=== PATIENT | male | born 1950 | race Caucasian/White ===

== ENCOUNTER 2021-03-07 15:11 | Outpatient (REF) | payer MEDICARE, OTHER, SELFPAY ==
--- NOTE | ~2021-03-07 | CT_ITS ---
EXAMINATION: CT CHEST SCREENING CLINICAL INFORMATION: Current smoker. 55 pack year history. COMPARISON: Previous chest x-ray July 2017 TECHNIQUE: Multidetector volumetric CT imaging of the chest is performed without contrast using low dose technique. Additional 2D coronal and sagittal reformatted images and axial 3D maximum intensity projection (MIP) images are generated on the CT workstation. This CT examination was performed using dose optimization techniques as appropriate, variously including the following: *Automated exposure control *Adjustment of mA and/or kV according to patient size (this includes techniques or standardized protocols for targeted exams where dose is matched to indication/reason for exam; i.e. extremities or head) *Use of iterative reconstruction technique DLP: 62 mGy-cm FINDINGS: LUNGS: There is mild paraseptal emphysema along apices. There is a 4 mm groundglass attenuation nodule left upper lobe nodule axial image 173 series 5. MEDIASTINUM: There is mild coronary artery calcification. There may be a small esophageal hernia. The mediastinum is otherwise normal. PLEURA: There is no pleural effusion. No pleural mass or thickening. AXILLA: No lymphadenopathy. UPPER ABDOMEN: Unremarkable OSSEOUS STRUCTURES: There are degenerative changes of the spine. CT/CT lung screening IMPRESSION: 4 mm groundglass attenuation left upper lobe nodule. Mild coronary artery calcification. ASSESSMENT: Lung-RADS category 2: Benign RECOMMENDATION: Annual low-dose chest CT follow-up recommended.
== END 2021-03-07 15:12 | disposition home or self-care (01) ==
LOC: HO.CT 15:11
PROVIDERS: PCP Internal Medicine Geriatric Medicine; Visit Provider Physician Assistant Medical
DX: F17.210 Nicotine dependence, cigarettes, uncomplicated (principal)
CPT/HCPCS: 71271; G0296

== ENCOUNTER 2021-04-10 09:26 | Outpatient (REF) | payer MEDICARE, OTHER, SELFPAY ==
[2021-04-10 10:31] LABS: MANUAL DIFF FLAG NO
[2021-04-10 11:17] LABS: Alanine Aminotransferase 14 U/L (0-40); Albumin Level 4.5 g/dL (3.5-5.0); Alkaline Phosphatase 83 U/L (39-117); Anion Gap 12 (12-20); Aspartate Amino Transferase 16 U/L (5-37); Bilirubin Total 1.1 mg/dL (0.0-1.0); Blood Urea Nitrogen 11 mg/dL (9-16); Calcium 9.7 mg/dL (8.4-10.2); Carbon Dioxide 25 mmol/L (22-29); Chloride 107 mmol/L (96-108); Estimated Glomerular Filt Rate > 60; Glucose Random 98 mg/dL (60-115); Sodium 140 mmol/L (135-145); Total Protein 7.5 g/dL (6.5-8.0)
[2021-04-10 11:31] LABS: Basophils Percent Auto 0.4 % (0-2); Eosinophils Absolute Auto 0.1 X10*3/uL (0.0-0.4); Eosinophils Percent Auto 1.1 % (0-4); Hemoglobin 19.9 g/dl (14.0-18.0); Imm Gran Abs Auto 0.02 X10*3/uL (0.00-0.03); Imm Gran Pct Auto 0.2 % (0.0-0.4); Lymphocytes Absolute Auto 2.6 X10*3/uL (1.2-4.9); Lymphocytes Percent Auto 30.8 % (20-40); Mean Corpuscular HGB Conc 35.7 g/dl (31.0-36.0); Mean Corpuscular Hemoglobin 35.5 pg (27.0-33.0); Mean Corpuscular Volume 99.6 fL (80.0-98.0); Mean Platelet Volume 10.1 fL (9.4-12.4); Monocytes Absolute Auto 0.9 X10*3/uL (0.1-1.2); Monocytes Percent Auto 10.4 % (2-11); Neutrophils Absolute Auto 4.9 x10*3/uL (2.0-8.3); Neutrophils Percent Auto 57.1 % (45-73); Platelet Count 270 X10*3/uL (160-400); Red Cell Distribution Width 14.6 % (11.0-16.0); White Blood Count 8.5 X10*3/uL (4.8-10.8)
[2021-04-10 11:32] LABS: Hematocrit 55.8 % (42.0-52.0)
== END 2021-04-10 09:27 | disposition home or self-care (01) ==
LOC: HO.LAB 09:26
PROVIDERS: PCP Internal Medicine Geriatric Medicine; Referring Provider Internal Medicine Geriatric Medicine; Visit Provider Nurse Practitioner
DX: D12.6 Benign neoplasm of colon, unspecified (principal); Z12.11 Encounter for screening for malignant neoplasm of colon
CPT/HCPCS: 36415; 80053; 85025; 99202

== ENCOUNTER → 2021-04-24 09:45 | Outpatient (BNVA) | payer MEDICARE, OTHER, SELFPAY | PROVIDERS: PCP Internal Medicine; Visit Provider Urology | DX: R97.20 Elevated prostate specific antigen [PSA] (principal) | CPT/HCPCS: Q3014 ==

== ENCOUNTER 2021-10-22 11:13 | Outpatient (REF) | payer MEDICARE, OTHER, SELFPAY ==
[2021-10-22 12:59] LABS: PSA,Total (Free>4and<10) 5.35 ng/mL (0.00-4.00)
[2021-10-24 11:32] LABS: Free Prostate Spec Ag 0.8 ng/mL; Percent Free Prostate Spec Ag 14 % (calc) (>25); Prostate Specific Ag Total 5.9 ng/mL (< OR = 4.0)
== END 2021-10-22 11:14 | disposition home or self-care (01) ==
LOC: HO.LAB 11:13
PROVIDERS: PCP Internal Medicine Geriatric Medicine; Visit Provider Urology
DX: Z12.5 Encounter for screening for malignant neoplasm of prostate (principal); R97.20 Elevated prostate specific antigen [PSA]
CPT/HCPCS: 36415; 84153; 84154

== ENCOUNTER → 2021-10-28 11:21 | Outpatient (BNVA) | payer MEDICARE, OTHER, SELFPAY | PROVIDERS: PCP Internal Medicine Geriatric Medicine; Visit Provider Urology | DX: N40.1 Benign prostatic hyperplasia with lower urinary tract symptoms (principal); N13.8 Other obstructive and reflux uropathy; R97.20 Elevated prostate specific antigen [PSA] | CPT/HCPCS: Q3014 ==

== ENCOUNTER 2022-03-02 09:48 | Outpatient (REF) | payer MEDICARE, OTHER, SELFPAY ==
[2022-03-02 12:43] LABS: PSA,Total (Free>4and<10) 6.27 ng/mL (0.00-4.00)
[2022-03-04 09:37] LABS: Free Prostate Spec Ag 1.3 ng/mL; Percent Free Prostate Spec Ag 18 % (calc) (>25); Prostate Specific Ag Total 7.4 ng/mL (< OR = 4.0)
== END 2022-03-02 09:49 | disposition home or self-care (01) ==
LOC: HO.LAB 09:48
PROVIDERS: PCP Internal Medicine Geriatric Medicine; Visit Provider Urology
DX: N40.1 Benign prostatic hyperplasia with lower urinary tract symptoms (principal); N13.8 Other obstructive and reflux uropathy; Z12.5 Encounter for screening for malignant neoplasm of prostate
CPT/HCPCS: 36415; 84153; 84154

== ENCOUNTER → 2022-03-05 11:22 | Outpatient (BNVA) | payer MEDICARE, MEDICAID, OTHER, SELFPAY | PROVIDERS: PCP Internal Medicine Geriatric Medicine; Visit Provider Urology | DX: R97.20 Elevated prostate specific antigen [PSA] (principal); N40.1 Benign prostatic hyperplasia with lower urinary tract symptoms; N13.8 Other obstructive and reflux uropathy | CPT/HCPCS: 99212 ==

== ENCOUNTER 2022-04-07 06:47 | Outpatient (REF) | payer MEDICARE, OTHER, SELFPAY ==
[2022-04-07 07:35] VITALS: BMI 25.8
[2022-04-07 07:36] VITALS: BP 140/67; PULSE 68; RESP 16; TEMP 36.8; O2SAT 97
--- NOTE | 2022-04-07 08:21 | W.PM.OPN ---
Operative Note Operative Note Date of Service: 04/07/22 Narrative: Preoperative diagnosis: Elevated PSA Postoperative diagnosis: Elevated PSA Procedure: 1. transrectal ultrasound measurement of prostate 2. transrectal ultrasound-guided pudendal nerve block 3. transrectal ultrasound-guided prostate biopsy 12 core Surgeon: Dr. Hamzah Nuno Anesthetic: Local Indications for procedure: Elevated PSA T 7.4 F 18% Procedure: After informed consent was verified, the patient was brought into the procedure area and lay left-hand side down on the table. Patient identity confirmed. Perioperative antibiotics confirmed. Safety pause time out performed. KIP performed to dilate rectal sphincter Iodine 10cc with Gel was placed per rectum Ultrasound probe was placed per rectum The prostate was measured in 3 dimensions Total volume equals 55 gm No cystic structures were noted No calcifications were noted at the surgical margin The prostate was otherwise homogeneous - MANY SMALL VASCULAR LACUNAE - in nature An ultrasound-guided pudendal nerve block was performed using 10 cc of 1% lidocaine. 8 cc was placed at the base and 2 cc of the apex. A 12 core biopsy was performed with 6 cores each side. Two cores were taken at the apex, mid and base. Cores were spaced between lateral and medial. He tolerated the procedure well. Was able to ambulate to bathroom after 5 minutes. Printed instructions regarding antibiotic use and common side effects such as low-grade temperature, potential infection and bleeding were given Pathology: 12 core prostate biopsy.
[2022-04-07 08:27] VITALS: BP 182/82; PULSE 54; RESP 16; O2SAT 97
== END 2022-04-07 06:48 | disposition home or self-care (01) ==
LOC: HO.MS 06:47
PROVIDERS: PCP Internal Medicine Geriatric Medicine; Visit Provider Urology
PROC: (CPT 55700; principal; 2022-04-07 08:00)
DX: R97.20 Elevated prostate specific antigen [PSA] (principal); N40.1 Benign prostatic hyperplasia with lower urinary tract symptoms; N13.8 Other obstructive and reflux uropathy; I10 Essential (primary) hypertension; E78.5 Hyperlipidemia, unspecified; R73.01 Impaired fasting glucose; G62.9 Polyneuropathy, unspecified; H90.3 Sensorineural hearing loss, bilateral; Z87.891 Personal history of nicotine dependence
CPT/HCPCS: 55700; 76942; 88305; 88344

== ENCOUNTER 2022-04-14 06:29 | Day surgery (SDC) | payer MEDICARE, OTHER, SELFPAY ==
[2022-04-09 15:32] VITALS: BMI 25.8
--- NOTE | 2022-04-13 13:32 | P.CONAN_ITS ---
Documented by User: Diya Jara NP 04/13/22 13:33 HPI - Anesthesia Eval Consult details Narrative: 72yo M for Colonoscopy PMF Active Problems Active Problems: All Active Problems (Updated 10/28/21 @ 15:36 by Hamzah Nuno MD) Colon cancer screening (Acute) Lumbar degenerative disc disease (Acute) Failed back surgical syndrome (Acute) Peripheral arterial disease (Acute) Tubular adenoma of colon (Acute) BPH w urinary obs/LUTS (Acute) Elevated PSA (Acute) Personal history of nicotine dependence (Acute) Past Medical History Medical History Elevated PSA History of melanoma Hyperlipidemia Hypertension, essential, benign Impaired fasting glucose Peripheral polyneuropathy Personal history of nicotine dependence Sensorineural hearing loss (SNHL), bilateral Serrated adenoma of colon (~2002) Surgical History Surgical History History of back surgery History of cataract surgery History of colonoscopy History of melanoma excision History of umbilical hernia repair Hx of prostate biopsy Social History Social History Alcohol intake: current Alcohol intake frequency: a few times a week Patient Tobacco Use Status: Current everyday Tobacco user Tobacco use type: Cigarette Cigarette Packs Per Day: 1 Cigarettes Per Day: 20 Years Smoked: 50 Are you DNR?: No Advance Directives: No Advance Directives Information Provided: Yes Advance Directives on File: No Recently lost weight without trying: No Eating poorly because of decreased appetite: No Nutrition Risks: No Nutritional Risk Meds Allergies Allergy/AdvReac Type Severity Reaction Status Date / Time No Known Allergies Allergy Verified 04/14/22 06:56 [No Known Allergies*] Home Medications Medication Instructions Recorded Confirmed Last Taken Type amlodipine 10 mg tablet 10 mg PO DAILY 04/10/21 04/09/22 Unknown History aspirin 81 mg tablet,delayed 81 mg PO DAILY 04/10/21 04/09/22 04/11/22 History release cilostazol 100 mg tablet 100 mg PO BID 04/10/21 04/09/22 Unknown History cyclobenzaprine 5 mg tablet 5 mg PO BID 04/10/21 04/09/22 Unknown History losartan 25 mg tablet 25 mg PO DAILY 04/10/21 04/09/22 Unknown History meloxicam 7.5 mg tablet 7.5 mg PO DAILY 04/10/21 04/09/22 04/11/22 History omeprazole 20 mg capsule,delayed 20 mg PO DAILY 04/10/21 04/09/22 Unknown History release oxycodone-acetaminophen 5 mg-325 1 tab PO TID PRN Pain 04/10/21 04/09/22 Unknown History mg tablet atorvastatin 80 mg tablet 80 mg PO DAILY 10/27/21 04/09/22 Unknown History gabapentin 100 mg capsule 100 mg PO DAILY 10/27/21 04/09/22 Unknown History Exam Exam Date and Time: April 13, 2022 1332 Height,Weight and Vital Signs: Height 5 ft 9 in Weight 79.379 kg Pertinent Lab Results Pertinent Lab Results: Laboratory Tests 04/10/21 04/10/21 10:30 10:30 WBC 8.5 Hgb 19.9 H Hct 55.8 H Plt Count 270 Sodium 140 Potassium 4.0 Chloride 107 Carbon Dioxide 25 BUN 11 Creatinine 0.82 Assessment and Plan Assessment Anesthesia Assessment: Chart Reviewed Documented by User: Katey Hodges MD 04/14/22 07:26 PMFSH Past Medical History Medical History Elevated PSA History of melanoma Hyperlipidemia Hypertension, essential, benign Impaired fasting glucose Peripheral polyneuropathy Personal history of nicotine dependence Sensorineural hearing loss (SNHL), bilateral Serrated adenoma of colon (~2002) Surgical History Surgical History History of back surgery History of cataract surgery History of colonoscopy History of melanoma excision History of umbilical hernia repair Hx of prostate biopsy Social History Social History Alcohol intake: current Alcohol intake frequency: a few times a week Patient Tobacco Use Status: Current everyday Tobacco user Tobacco use type: Cigarette Cigarette Packs Per Day: 1 Cigarettes Per Day: 20 Years Smoked: 50 Are you DNR?: No Advance Directives: No Advance Directives Information Provided: Yes Advance Directives on File: No Recently lost weight without trying: No Eating poorly because of decreased appetite: No Nutrition Risks: No Nutritional Risk Meds Allergies Allergy/AdvReac Type Severity Reaction Status Date / Time No Known Allergies Allergy Verified 04/14/22 06:56 [No Known Allergies*] Home Medications Medication Instructions Recorded Confirmed Last Taken Type amlodipine 10 mg tablet 10 mg PO DAILY 04/10/21 04/09/22 Unknown History aspirin 81 mg tablet,delayed 81 mg PO DAILY 04/10/21 04/09/22 04/11/22 History release cilostazol 100 mg tablet 100 mg PO BID 04/10/21 04/09/22 Unknown History cyclobenzaprine 5 mg tablet 5 mg PO BID 04/10/21 04/09/22 Unknown History losartan 25 mg tablet 25 mg PO DAILY 04/10/21 04/09/22 Unknown History meloxicam 7.5 mg tablet 7.5 mg PO DAILY 04/10/21 04/09/22 04/11/22 History omeprazole 20 mg capsule,delayed 20 mg PO DAILY 04/10/21 04/09/22 Unknown History release oxycodone-acetaminophen 5 mg-325 1 tab PO TID PRN Pain 04/10/21 04/09/22 Unknown History mg tablet atorvastatin 80 mg tablet 80 mg PO DAILY 10/27/21 04/09/22 Unknown History gabapentin 100 mg capsule 100 mg PO DAILY 10/27/21 04/09/22 Unknown History Exam Airway Mallampati Class: II TM Dist: >3cm Neck ROM: Full Heart: rrr Lungs: cta Assessment and Plan Final Anesthetic Review Final Preanesthetic Review: No Changes in Pt Med Stat, Meds/Allgs Chart Reviewe d, Consent Obtained/Reviewed and Anes Risks/Benef Reviewed Patient Risk: Low Procedure Risk: Low Anesthetic Plan Anesthetic Plan: MAC: and Agree w/ Assess. and Plan Disposition: Standard PACU
[2022-04-14] VITALS (10 sets, daily range): BP systolic 91–157; BP diastolic 64–80; PULSE 74–87; RESP 16–20; TEMP 36.2–36.8; O2SAT 95–98
--- NOTE | 2022-04-14 06:52 | MHC.SHP ---
Pre-Procedural Eval Section A Date of Service: 04/14/22 Section B Chief Complaint: screening Relevant Family History (Specify if Yes): No Relevant Social History: Tobacco Use Present Medications: see Short Stay Collaborative assessment Medical History: Significant History (Elevated PSA History of melanoma Hyperlipidemia Hypertension, essential, benign Impaired fasting glucose Peripheral polyneuropathy Personal history of nicotine dependence Sensorineural hearing loss (SNHL), bilateral Serrated adenoma of colon (~2002)) History of Previous Operations: Relevant previous surgery/procedure and date(s) (History of back surgery History of cataract surgery History of colonoscopy History of melanoma excision History of umbilical hernia repair Hx of prostate biopsy) Allergies: Allergies Allergy/AdvReac Type Severity Reaction Status Date / Time No Known Allergies Allergy Verified 03/05/22 11:35 [No Known Allergies*] Review of Systems Sugical H&P ROS: Negative: Constitution, Cardiovascular, Respiratory, Neurological, Psychiatric, Hem-Onc, Allergic/Immunologic, Gastrointestinal, Genitourinary, Musculoskeletal, Integumentary, Endocrine and Eyes/Ears/Nose/Throat Exam Surgical H&P Exam: Normal: HEENT, Normal: Heart, Normal: Lungs, Normal: Extremities, Normal: Abdomen, Normal: Skin and Normal: Neurological Plan Diagnosis/Plan: Unchanged I have reviewed the history and physical and performed a pertinent physical examination on my patient. No changes have occurred unless specified. Time Spent With Patient Time: Total time managing care of this patient today ____ minutes.
[2022-04-14] MEDS: Lactated Ringers 1,000 ML 100 ML IVCONT (06:55)
--- NOTE | 2022-04-14 07:48 | P.OP_ITS ---
Operative Note Operative Note Date of Service: 04/14/22 Narrative: Operative Information Procedure Description: Colonoscopy Indication: screening Anesthesia: MAC COLONOSCOPY Instrument: Olympus variable stiffness pediatric scope 190L Colonoscopy Monitoring: Vital signs and clinical assessment, continuous EKG monitoring, Pulse oximetry, Carbon Dioxide monitoring and blood pressure monitoring were done throughout the procedure. Colon withdrawal time was 51 minutes. Procedure: The patient was placed in the left lateral decubitis position and pre-procedure medications were administered. After a digital rectal examination of the ano-rectum, the video colonoscope was inserted into the rectum and advanced through the colon to the cecum/TI. The colonoscope was slowly withdrawn in a retrograde panoramic fashion and the colon mucosa was carefully examined including a retroflexed view of the rectum. Findings and interventions are described below. Procedure Difficulty: moderate Findings: Terminal Ileum-normal Cecum: 5-7 mm sessile polyp removed with cold forceps Ascending Colon: in proximal ascending there was a large flat polyp, lateral spreading granular type measuring about 2 cm with raised edges on one side, This was lifted with ERBE jet and methylene blue and then removed piece meal using cold snare and hot snare with edges ablated using APC. The defect was partially closed using 4 clips. In the distal part there was a 12-15 mm flat polyp which was lifted with ERBE jet and then removed piece meal using hot snare. Edges ablated with APC. There were a few smaller polyps 6-8 mm which were not removed due to time length of the procedure and persistent spasm of the colon. Transverse Colon -normal Descending Colon:normal Sigmoid Colon: moderate severe diverticulosis Rectum: Retroflexion with large internal hemorrhoids, grade I Anorectum - normal Colon preparation: [place] Bowel Preparation Scale Right colon; 2 Transverse colon: 3 Left colon; 3 (0 = Unprepared colon segment with mucosa not seen due to solid stool that cannot be cleared. 1 = Portion of mucosa of the colon segment seen, but other areas of the colon segment not well seen due to staining, residual stool and/or opaque liquid. 2 = Minor amount of residual staining, small fragments of stool and/or opaque liquid, but mucosa of colon segment seen well. 3 = Entire mucosa of colon segment seen well with no residual staining, small fragments of stool or opaque liquid) Impression and Post Procedure Diagnosis: polyps internal hemorrhoids diverticular disease Plan: High fiber diet leaflet Avoid straining at stool, epsom salts and sitz bath, anusol supps or cream Repeat Colonoscopy in 3-6 months or earlier if clinically indicated 1 week of cipro and flagyl to prevent post polypectomy syndrome avoid nsaids like ibuprofen, hold aspirin for 3 days or so Above findings were reviewed with the patient and relevant handouts were provided if indicated.
[2022-04-14] MEDS: levoFLOXacin/D5W 500 MG/100 ML PIGGYBACK 100 MG IV (09:16)
[2022-04-14] MEDS: metroNIDAZOLE/NS 500 MG/100 ML PIGGYBACK 100 MG IV (10:14)
== END 2022-04-14 11:29 | disposition home or self-care (01) ==
PROVIDERS: PCP Internal Medicine Geriatric Medicine; Visit Provider Internal Medicine Gastroenterology
PROC: 0DJD8ZZ Inspection of Lower Intestinal Tract, Via Natural or Artificial Opening Endoscopic (ICD-10-PCS; CPT 45378; principal; 2022-04-14 07:30)
DX: Z12.11 Encounter for screening for malignant neoplasm of colon (principal); Z86.010 Personal history of colon polyps; D12.0 Benign neoplasm of cecum; D12.2 Benign neoplasm of ascending colon; K57.30 Diverticulosis of large intestine without perforation or abscess without bleeding; K64.0 First degree hemorrhoids; E78.00 Pure hypercholesterolemia, unspecified; I10 Essential (primary) hypertension; R73.01 Impaired fasting glucose; G62.9 Polyneuropathy, unspecified; R97.20 Elevated prostate specific antigen [PSA]; Z79.82 Long term (current) use of aspirin; Z79.899 Other long term (current) drug therapy; F17.210 Nicotine dependence, cigarettes, uncomplicated; Z85.820 Personal history of malignant melanoma of skin
CPT/HCPCS: 45388; 45385; 45380; 45381; 88305; C2618; J1100; J1956; Q9968

== ENCOUNTER → 2022-04-15 10:53 | Outpatient (BNVA) | payer MEDICARE, MEDICAID, SELFPAY | PROVIDERS: PCP Internal Medicine Geriatric Medicine; Visit Provider Urology | DX: R97.20 Elevated prostate specific antigen [PSA] (principal); N40.1 Benign prostatic hyperplasia with lower urinary tract symptoms; N13.8 Other obstructive and reflux uropathy | CPT/HCPCS: Q3014 ==

== ENCOUNTER → 2022-04-29 10:26 | Outpatient (BNVA) | payer MEDICARE, MEDICAID, SELFPAY | PROVIDERS: PCP Internal Medicine Geriatric Medicine; Visit Provider Nurse Practitioner | DX: D12.6 Benign neoplasm of colon, unspecified (principal) | CPT/HCPCS: 99212 ==

== ENCOUNTER 2022-07-28 08:48 | Day surgery (SDC) | payer MEDICARE, OTHER, SELFPAY ==
[2022-07-23 10:44] VITALS: BMI 26.1
--- NOTE | 2022-07-27 12:11 | HO.ANESPROP2 ---
Documented by User: Diya Jara NP 07/27/22 12:13 HPI - Anesthesia Eval Consult details Narrative: 72yo M for Colonoscopy s/p colo 04/2022 with MAC PMFSH Active Problems Active Problems: All Active Problems (Updated 04/29/22 @ 11:36 by NORMAN Gordon) Colon cancer screening (Acute) Lumbar degenerative disc disease (Acute) Failed back surgical syndrome (Acute) Peripheral arterial disease (Acute) Tubular adenoma of colon (Acute) BPH w urinary obs/LUTS (Acute) Elevated PSA (Acute) Personal history of nicotine dependence (Acute) Past Medical History Medical History Elevated PSA History of melanoma Hyperlipidemia Hypertension, essential, benign Impaired fasting glucose Peripheral polyneuropathy Personal history of nicotine dependence Sensorineural hearing loss (SNHL), bilateral Serrated adenoma of colon (~2002) Surgical History Surgical History History of back surgery History of cataract surgery History of colonoscopy History of melanoma excision History of umbilical hernia repair Hx of prostate biopsy Social History Social History Alcohol intake: current Alcohol intake frequency: a few times a week Patient Tobacco Use Status: Current everyday Tobacco user Tobacco use type: Cigarette Cigarette Packs Per Day: 1 Cigarettes Per Day: 20 Years Smoked: 50 Meds Allergies Allergy/AdvReac Type Severity Reaction Status Date / Time No Known Allergies Allergy Verified 07/28/22 09:13 [No Known Allergies*] Home Medications Medication Instructions Recorded Confirmed Last Taken Type amlodipine 10 mg tablet 10 mg PO DAILY 04/10/21 07/23/22 Unknown History aspirin 81 mg tablet,delayed 81 mg PO DAILY 04/10/21 07/23/22 07/24/22 History release cilostazol 100 mg tablet 100 mg PO BID 04/10/21 07/23/22 Unknown History cyclobenzaprine 5 mg tablet 5 mg PO BID 04/10/21 07/23/22 Unknown History losartan 25 mg tablet 25 mg PO DAILY 04/10/21 07/23/22 Unknown History meloxicam 7.5 mg tablet 7.5 mg PO DAILY 04/10/21 07/23/22 07/24/22 History oxycodone-acetaminophen 5 mg-325 1 tab PO TID PRN Pain 04/10/21 07/23/22 Unknown History mg tablet atorvastatin 80 mg tablet 80 mg PO DAILY 10/27/21 07/23/22 Unknown History gabapentin 100 mg capsule 100 mg PO DAILY 10/27/21 07/23/22 07/28/22 History pantoprazole 20 mg tablet,delayed 20 mg PO DAILY 07/28/22 07/28/22 Unknown History release Exam Exam Date and Time: July 27, 2022 1211 Height,Weight and Vital Signs: Height 6 ft 1 in Weight 89.811 kg Assessment and Plan Assessment Anesthesia Assessment: Chart Reviewed Documented by User: Manav Rapp MD 07/28/22 17:49 HPI - Anesthesia Eval Consult details Narrative: 72yo M for Colonoscopy s/p colo 04/2022 with MAC back pain with radtion to bl LE with tingling and numbness PMFSH Past Medical History Medical History Elevated PSA History of melanoma Hyperlipidemia Hypertension, essential, benign Impaired fasting glucose Peripheral polyneuropathy Personal history of nicotine dependence Sensorineural hearing loss (SNHL), bilateral Serrated adenoma of colon (~2002) Functional capacity: independent ambulation Family History Family history of problems with anesthesia: No Surgical History Surgical History History of back surgery History of cataract surgery History of colonoscopy History of melanoma excision History of umbilical hernia repair Hx of prostate biopsy History of Problems with Anesthesia: No Social History Social History Alcohol intake: current Alcohol intake frequency: a few times a week Patient Tobacco Use Status: Current everyday Tobacco user Tobacco use type: Cigarette Cigarette Packs Per Day: 1 Cigarettes Per Day: 20 Years Smoked: 50 Meds Allergies Allergy/AdvReac Type Severity Reaction Status Date / Time No Known Allergies Allergy Verified 07/28/22 09:13 [No Known Allergies*] Home Medications Medication Instructions Recorded Confirmed Last Taken Type amlodipine 10 mg tablet 10 mg PO DAILY 04/10/21 07/23/22 Unknown History aspirin 81 mg tablet,delayed 81 mg PO DAILY 04/10/21 07/23/22 07/24/22 History release cilostazol 100 mg tablet 100 mg PO BID 04/10/21 07/23/22 Unknown History cyclobenzaprine 5 mg tablet 5 mg PO BID 04/10/21 07/23/22 Unknown History losartan 25 mg tablet 25 mg PO DAILY 04/10/21 07/23/22 Unknown History meloxicam 7.5 mg tablet 7.5 mg PO DAILY 04/10/21 07/23/22 07/24/22 History oxycodone-acetaminophen 5 mg-325 1 tab PO TID PRN Pain 04/10/21 07/23/22 Unknown History mg tablet atorvastatin 80 mg tablet 80 mg PO DAILY 10/27/21 07/23/22 Unknown History gabapentin 100 mg capsule 100 mg PO DAILY 10/27/21 07/23/22 07/28/22 History pantoprazole 20 mg tablet,delayed 20 mg PO DAILY 07/28/22 07/28/22 Unknown History release Exam Airway Mallampati Class: III TM Dist: >3cm Loose/Missing/Broken Teeth: Yes Assessment and Plan Assessment Anesthesia Assessment: Anesthesia Plan Discussed Final Anesthetic Review Family History of Problems with Anesthesia: No History of Problems with Anesthesia: No NPO: Yes ASA Class: III Final Preanesthetic Review: Meds/Allgs Chart Reviewed, Consent Obtained/Reviewed and Anes Risks/Benef Reviewed Patient Risk: Intermediate Procedure Risk: Intermediate Anesthetic Plan Anesthetic Plan: MAC: and Agree w/ Assess. and Plan Disposition: Standard PACU
[2022-07-28 09:26] VITALS: BP 135/65; PULSE 86; RESP 16; TEMP 36.4; O2SAT 96
[2022-07-28] MEDS: Lactated Ringers 1,000 ML 100 ML IVCONT (09:46)
--- NOTE | 2022-07-28 10:51 | MHC.SHP ---
Pre-Procedural Eval Section A Date of Service: 07/28/22 Section B Chief Complaint: Screening Details of Present Illness: hx of polyps Relevant Family History (Specify if Yes): No Relevant Social History: Tobacco Use Present Medications: see Short Stay Collaborative assessment Medical History: Significant History (Elevated PSA History of melanoma Hyperlipidemia Hypertension, essential, benign Impaired fasting glucose Peripheral polyneuropathy Personal history of nicotine dependence Sensorineural hearing loss (SNHL), bilateral Serrated adenoma of colon (~2002)) History of Previous Operations: Relevant previous surgery/procedure and date(s) (History of back surgery History of cataract surgery History of colonoscopy History of melanoma excision History of umbilical hernia repair Hx of prostate biopsy) Allergies: Allergies Allergy/AdvReac Type Severity Reaction Status Date / Time No Known Allergies Allergy Verified 07/28/22 09:13 [No Known Allergies*] Review of Systems Sugical H&P ROS: Negative: Constitution, Cardiovascular, Respiratory, Neurological, Psychiatric, Hem-Onc, Allergic/Immunologic, Gastrointestinal, Genitourinary, Musculoskeletal, Integumentary, Endocrine and Eyes/Ears/Nose/Throat Exam Surgical H&P Exam: Normal: HEENT, Normal: Heart, Normal: Lungs, Normal: Extremities, Normal: Abdomen, Normal: Skin and Normal: Neurological Plan Diagnosis/Plan: Unchanged I have reviewed the history and physical and performed a pertinent physical examination on my patient. No changes have occurred unless specified. Time Spent With Patient Time: Total time managing care of this patient today ____ minutes.
--- NOTE | 2022-07-28 10:55 | W.PM.OPN ---
Operative Note Operative Note Date of Service: 07/28/22 Narrative: Operative Information Procedure Description: Colonoscopy Indication: hx of polyps Anesthesia: MAC COLONOSCOPY Instrument: Olympus variable stiffness pediatric scope 190L Colonoscopy Monitoring: Vital signs and clinical assessment, continuous EKG monitoring, Pulse oximetry, Carbon Dioxide monitoring and blood pressure monitoring were done throughout the procedure. Colon withdrawal time was 9 minutes. Procedure: The patient was placed in the left lateral decubitis position and pre-procedure medications were administered. After a digital rectal examination of the ano-rectum, the video colonoscope was inserted into the rectum and advanced through the colon to the cecum/TI. The colonoscope was slowly withdrawn in a retrograde panoramic fashion and the colon mucosa was carefully examined including a retroflexed view of the rectum. Findings and interventions are described below. Procedure Difficulty: moderate Findings: Terminal Ileum-normal Cecum:normal Ascending Colon: some granularity in fold around prior resection site, biopsy excised, 9-10 mm sessile polyp removed with cold snare Transverse Colon -normal Descending Colon:normal Sigmoid Colon: moderate severe diverticulosis Rectum: Retroflexion with small internal hemorrhoids, grade I Anorectum - normal Colon preparation: [place] Bowel Preparation Scale Right colon; 2 Transverse colon: 1-2 Left colon; 1-2 (0 = Unprepared colon segment with mucosa not seen due to solid stool that cannot be cleared. 1 = Portion of mucosa of the colon segment seen, but other areas of the colon segment not well seen due to staining, residual stool and/or opaque liquid. 2 = Minor amount of residual staining, small fragments of stool and/or opaque liquid, but mucosa of colon segment seen well. 3 = Entire mucosa of colon segment seen well with no residual staining, small fragments of stool or opaque liquid) Impression and Post Procedure Diagnosis: polyps internal hemorrhoids diverticular disease Plan: High fiber diet leaflet Avoid straining at stool, epsom salts and sitz bath, anusol supps or cream Repeat Colonoscopy in 1 year or earlier if clinically indicated Above findings were reviewed with the patient and relevant handouts were provided if indicated.
[2022-07-28 11:37] VITALS: BP 113/68; PULSE 76; RESP 15; TEMP 36.7; O2SAT 98
[2022-07-28 11:52] VITALS: BP 129/72; PULSE 64; RESP 16; TEMP 36.7; O2SAT 96
== END 2022-07-28 12:08 | disposition home or self-care (01) ==
PROVIDERS: PCP Internal Medicine Geriatric Medicine; Visit Provider Internal Medicine Gastroenterology
PROC: 0DJD8ZZ Inspection of Lower Intestinal Tract, Via Natural or Artificial Opening Endoscopic (ICD-10-PCS; CPT 45378; principal; 2022-07-28 10:40)
DX: Z12.11 Encounter for screening for malignant neoplasm of colon (principal); Z86.010 Personal history of colon polyps; D12.2 Benign neoplasm of ascending colon; K57.30 Diverticulosis of large intestine without perforation or abscess without bleeding; K64.0 First degree hemorrhoids; R97.20 Elevated prostate specific antigen [PSA]; I10 Essential (primary) hypertension; E78.5 Hyperlipidemia, unspecified; R73.01 Impaired fasting glucose; I73.9 Peripheral vascular disease, unspecified; M51.36 Other intervertebral disc degeneration, lumbar region; M96.1 Postlaminectomy syndrome, not elsewhere classified; H90.3 Sensorineural hearing loss, bilateral; Z85.820 Personal history of malignant melanoma of skin; F17.210 Nicotine dependence, cigarettes, uncomplicated; Z79.82 Long term (current) use of aspirin; Z79.899 Other long term (current) drug therapy
CPT/HCPCS: 45385; 88305

== ENCOUNTER → 2022-08-26 13:36 | Outpatient (BNVA) | payer MEDICARE, MEDICAID, SELFPAY | PROVIDERS: PCP Internal Medicine Geriatric Medicine; Visit Provider Nurse Practitioner | DX: D12.2 Benign neoplasm of ascending colon (principal); Z98.890 Other specified postprocedural states | CPT/HCPCS: 99212 ==

== ENCOUNTER 2022-10-08 10:47 | Outpatient (REF) | payer MEDICARE, MEDICAID, SELFPAY | END 2022-10-08 10:48 | disposition home or self-care (01) | LOC: HO.LAB 10:47 | PROVIDERS: PCP Internal Medicine Geriatric Medicine; Visit Provider Urology | DX: Z12.5 Encounter for screening for malignant neoplasm of prostate (principal); R97.20 Elevated prostate specific antigen [PSA] | CPT/HCPCS: 36415; 84153 ==

== ENCOUNTER 2022-10-13 14:22 | Outpatient (AMB) | payer MEDICARE, MEDICAID, SELFPAY ==
--- NOTE | 2022-10-13 14:26 | MHC.OFFVIS ---
Intake Intake Visit Reasons: 6M PSA(set) Intake Note: Patient is present for Follow Up psa/PVR Urology Med: Finasteride Antibiotic Allergy: None Blood Thinner: Aspirin PVR: 0ML Allergies No Known Allergies [No Known Allergies*] Allergy (Verified 10/13/22 14:35) Medication List - Last Reconciled 10/13/22 by Hamzah Nuno MD amlodipine 10 mg PO DAILY aspirin 81 mg PO DAILY atorvastatin 80 mg PO DAILY bisacodyl (Dulcolax (bisacodyl)) 10 mg (2 x 5 mg) PO BEDTIME 2 days cilostazol 100 mg PO BID cyclobenzaprine 5 mg PO BID finasteride 5 mg PO DAILY 90 days gabapentin 100 mg PO DAILY losartan 25 mg PO DAILY meloxicam 7.5 mg PO DAILY oxycodone-acetaminophen 5-325 mg 1 tab PO TID PRN pantoprazole 20 mg PO DAILY polyethylene glycol 3350 (Miralax) 238 grams PO ONCE 1 day HPI HPI Comments History of Present Illness Details Kaiser is a pleasant male. He is a patient of Dr. Cruz. He is seen for the following urologic conditions - elevated PSA - lower urinary tract symptoms PSA fallen remarkably on finasteride Improved urinary symptoms 6 month follow-up Elevated PSA He presents for - continued evaluation elevated PSA Current management is - finasteride Laboratory investigations include - a total PSA evaluation - 01/23 4.4, 10/24 5.4, 02/24 7.4 18%. 10/25 2.0 on finasteride Imaging investigations include - a prostate MRI no Individualized Prostate Cancer Risk Calculator - less than 5% A TRUS biopsy - 04/27 - 55gm prostate 04/16 core suspicious but not diagnostic Symptoms include - minimal symptoms - are stable Overall symptoms are mild . Therapeutic plan will be - continue follow PSA every 6 months [facility] Medical History Elevated PSA History of melanoma Hyperlipidemia Hypertension, essential, benign Impaired fasting glucose Peripheral polyneuropathy Personal history of nicotine dependence Sensorineural hearing loss (SNHL), bilateral Serrated adenoma of colon (~2002) Surgical History History of back surgery History of cataract surgery History of colonoscopy History of melanoma excision History of umbilical hernia repair Hx of prostate biopsy Social History Alcohol intake: current Alcohol intake frequency: a few times a week Patient Tobacco Use Status: Current everyday Tobacco user Tobacco use type: Cigarette Cigarette Packs Per Day: 1 Cigarettes Per Day: 20 Years Smoked: 50 Review of Systems Const Denies chills and Denies fever(s) Card Reports no additional complaints and Denies syncope Resp Denies cough GI Denies abdominal pain and Denies heartburn Reports as per HPI and Denies change in libido Neuro Denies syncope Psych Denies change in libido Endo Denies change in libido Physical Exam Const General: cooperative, healthy appearing, comfortable and no acute distress Orientation/consciousness: patient oriented x3 HEENT Face and sinus: Yes normal facial exam Mouth: moist mucous membranes Neck Neck: Yes normal visual inspection, Yes full ROM and Yes trachea midline Chest Chest palpation & inspection: normal inspection of the chest Resp Effort & Inspection: normal respiratory effort, able to speak in complete sentences and no respiratory distress GI Inspection: Yes normal to inspection Back/Spine/Pelvis Cervical Spine: normal cervical lordosis Thoracic/Lumbar Spine: thoracic and lumbar spine normal to inspection Skin General skin exam: no rashes or lesions noted Neuro General: patient oriented x3, gait normal, tone normal and moves all extremities Extrem General: Yes normal to inspection and Yes capillary refill normal Office Procedures Post Void Residual Post Residual Void Post Void Residual (PVR): 0 [id number] Void Residual by ultrasound Results AMB Urinalysis, Automated UA Leukoctes 15 Viraj/uL Last Edit by JUAN Estrada on 10/13/22 14:37 UA Nitrite Negative Last Edit by JUAN Estrada on 10/13/22 14:37 UA Urobilinogen 0.2 mg/dL Last Edit by JUAN Estrada on 10/13/22 14:37 UA Protein 30 mg/dL Last Edit by JUAN Estrada on 10/13/22 14:37 UA pH 6.0 Last Edit by JUAN Estrada on 10/13/22 14:37 UA Blood 0 Mervin/uL Last Edit by JUAN Estrada on 10/13/22 14:37 UA Specific Dewey 1.025 Last Edit by JUAN Estrada on 10/13/22 14:37 UA Ketone Positive Last Edit by Ondina Quintanilla, RMA on 10/13/22 14:37 UA Bilirubin 1 mg/dL Last Edit by Ondina Quintanilla, RMA on 10/13/22 14:37 UA Glucose 0 mg/dL Last Edit by Ondina Quintanilla, RMA on 10/13/22 14:37 Results Reviewed Results Reviewed: Laboratory Last Values Urine pH (Auto) 6.0 10/13/22 14:36 Specific Dewey (Auto) 1.025 10/13/22 14:36 Urine Protein (Auto) 30 mg/dL 10/13/22 14:36 Glucose (UA)(Auto) 0 mg/dL 10/13/22 14:36 Urine Ketones (Auto) Positive 10/13/22 14:36 Urine Blood (Auto) 0 Mervin/uL 10/13/22 14:36 Urine Nitrite (Auto) Negative 10/13/22 14:36 Urine Bilirubin (Auto) 1 mg/dL 10/13/22 14:36 Urine Urobilinogen (Auto) 0.2 mg/dL 10/13/22 14:36 Leukocyte Esterase (Auto) 15 Viraj/uL 10/13/22 14:36 Assessment & Plan Assessment & Plan (1) BPH w urinary obs/LUTS: Code(s): N40.1 - Benign prostatic hyperplasia with lower urinary tract symptoms; N13.8 - Other obstructive and reflux uropathy (2) Elevated PSA: Code(s): R97.20 - Elevated prostate specific antigen [PSA] Plan 6 month follow-up PSA Orders: Orders Prostate Specific Antigen 6 Months R97.20 - Elevated prostate specific antigen [PSA] AMB Urinalysis Automated Today Z13.9 - Encounter for screening, unspecified AMB Post Void Residual by ultrasound Today N13.8 - Other obstructive and reflux uropathy, N40.1 - Benign prostatic hyperplasia with lower urinary tract symptoms Medications: Refilled finasteride 5 mg PO DAILY 90 tabs 1RF 90 days N13.8 - Other obstructive and reflux uropathy, N40.1 - Benign prostatic hyperplasia with lower urinary tract symptoms, R33.9 - Retention of urine, unspecified Patient Instructions: Imaging studies, laboratory and physical exam results were discussed and reviewed in detail. No major barriers to patient understanding were identified. An opportunity to ask questions regarding the treatment plan was provided. All questions were answered. The patient expressed understanding and agreement with the above treatment plan. The patient is aware they should contact our office by phone for worsening of their current condition or the appearance of new urologic symptoms. Compliance is encouraged with any medications and followup testing that is ordered. It is a privilege to participate in the urologic care of your patient. If you have any questions or concerns regarding treatment for the above conditions, or other urologic issues, please do not hesitate to contact me. The office telephone contact is [phone]. This note is constructed using voice recognition software. While every effort has been made to ensure accuracy newspaper vendor errors may have been included. Yours sincerely, Dr Hamzah Nuno MD, [facility] - Urology Providers of Expert, Compassionate Care for the Genitourinary System Coding Level of Care Code Est Pt Level 3 (47449) Diagnoses BPH w urinary obs/LUTS N40.1; N13.8 Elevated PSA R97.20 CPT Codes Post Residual Void - PVR CPT Code: 69727-Bmsm Void Residual by ultrasound ([id number])
== END 2022-10-13 14:49 | disposition home or self-care (01) ==
PROVIDERS: Visit Provider Urology
DX: N40.1 Benign prostatic hyperplasia with lower urinary tract symptoms (principal); N13.8 Other obstructive and reflux uropathy; R97.20 Elevated prostate specific antigen [PSA]
CPT/HCPCS: 99213

== ENCOUNTER → 2022-10-13 14:22 | Outpatient (BNVA) | payer MEDICARE, MEDICAID, SELFPAY | PROVIDERS: Visit Provider Urology | DX: R97.20 Elevated prostate specific antigen [PSA] (principal); N40.1 Benign prostatic hyperplasia with lower urinary tract symptoms; N13.8 Other obstructive and reflux uropathy; Z79.82 Long term (current) use of aspirin; Z79.899 Other long term (current) drug therapy | CPT/HCPCS: 51798; 99212 ==

== ENCOUNTER 2022-11-10 10:05 | Outpatient (REF) | payer MEDICARE, MEDICAID, SELFPAY ==
[2022-11-10 11:27] LABS: MANUAL DIFF FLAG NO
[2022-11-10 11:43] LABS: Basophils Percent Auto 0.3 % (0-2); Eosinophils Absolute Auto 0.1 X10*3/uL (0.0-0.4); Eosinophils Percent Auto 1.1 % (0-4); Hematocrit 48.3 % (42.0-52.0); Hemoglobin 16.3 g/dl (14.0-18.0); Imm Gran Abs Auto 0.01 X10*3/uL (0.00-0.03); Imm Gran Pct Auto 0.1 % (0.0-0.4); Lymphocytes Absolute Auto 2.5 X10*3/uL (1.2-4.9); Lymphocytes Percent Auto 33.2 % (20-40); Mean Corpuscular HGB Conc 33.7 g/dl (31.0-36.0); Mean Corpuscular Hemoglobin 32.6 pg (27.0-33.0); Mean Corpuscular Volume 96.6 fL (80.0-98.0); Mean Platelet Volume 10.7 fL (9.4-12.4); Monocytes Percent Auto 13.3 % (2-11); Neutrophils Absolute Auto 3.9 x10*3/uL (2.0-8.3); Platelet Count 250 X10*3/uL (160-400); Red Cell Distribution Width 14.5 % (11.0-16.0); White Blood Count 7.4 X10*3/uL (4.8-10.8)
[2022-11-10 12:12] LABS: Estimated Average Glucose 94 mg/dL; Hemoglobin A1c % 4.9 %
[2022-11-10 12:48] LABS: Alanine Aminotransferase 9 U/L (0-40); Alkaline Phosphatase 54 U/L (39-117); Anion Gap 13 (12-20); Aspartate Amino Transferase 14 U/L (5-37); Bilirubin Total 0.8 mg/dL (0.0-1.0); Blood Urea Nitrogen 11 mg/dL (9-16); Carbon Dioxide 24 mmol/L (22-29); Chloride 109 mmol/L (96-108); Cholesterol 102 mg/dL; Estimated Glomerular Filt Rate > 60; Glucose Random 95 mg/dL (60-115); HDL Cholesterol 35 mg/dL; LDL Cholesterol Calculated 49 mg/dl; Sodium 142 mmol/L (135-145); Total Protein 6.7 g/dL (6.5-8.0); Triglycerides 92 mg/dL
== END 2022-11-10 10:06 | disposition home or self-care (01) ==
LOC: HO.HHCL 10:05
PROVIDERS: Visit Provider Internal Medicine Geriatric Medicine
DX: I10 Essential (primary) hypertension (principal); I25.10 Atherosclerotic heart disease of native coronary artery without angina pectoris; I25.84 Coronary atherosclerosis due to calcified coronary lesion; E78.00 Pure hypercholesterolemia, unspecified; R73.01 Impaired fasting glucose
CPT/HCPCS: 36415; 80053; 80061; 83036; 85025

== ENCOUNTER 2023-01-28 08:20 | Outpatient (REF) | payer MEDICARE, OTHER, SELFPAY ==
--- NOTE | ~2023-01-28 | CT_ITS ---
EXAMINATION: CT CHEST SCREENING CLINICAL INFORMATION: Nicotine dependence, cigarettes, uncomplicated. COMPARISON: Lung screening CT 03/07/2021 TECHNIQUE: Multidetector volumetric CT imaging of the chest is performed without contrast using low dose technique. Additional 2D coronal and sagittal reformatted images and axial 3D maximum intensity projection (MIP) images are generated on the CT workstation. This CT examination was performed using dose optimization techniques as appropriate, variously including the following: *Automated exposure control *Adjustment of mA and/or kV according to patient size (this includes techniques or standardized protocols for targeted exams where dose is matched to indication/reason for exam; i.e. extremities or head) *Use of iterative reconstruction technique DLP: 50 mGy-cm FINDINGS: LUNGS: Lungs are hyperinflated compatible with COPD. Again seen is the 4 mm ground-glass nodule in the left upper lobe laterally, unchanged (5:191 compare prior 5:173). There is a new 4 mm ill-defined ground-glass opacities seen in a subpleural location in the right lower lobe (5:270). Two small 2 to 3 mm adjacent opacities are seen in the right lower lobe in a subpleural location unchanged from prior (5:274 compare prior 5:288). MEDIASTINUM: Normal sized heart. Calcific atherosclerotic plaque present in the aorta. No hilar or mediastinal lymphadenopathy. CORONARY ARTERY CALCIFICATION: Moderate. PLEURA: There is no pleural effusion. No pleural mass or thickening. AXILLA: No lymphadenopathy. UPPER ABDOMEN: Unremarkable. OSSEOUS STRUCTURES: Unremarkable. CT/CT lung screening IMPRESSION: COPD. Stable 4 mm ground-glass nodule left upper lobe. New 4 mm ill-defined ground-glass opacities in the right lower lobe. ASSESSMENT: Lung-RADS category 2: Benign RECOMMENDATION: Routine annual low-dose CT screening in 12 months.
== END 2023-01-28 08:21 | disposition home or self-care (01) ==
LOC: HO.CT 08:20
PROVIDERS: Visit Provider Physician Assistant Medical
DX: Z12.2 Encounter for screening for malignant neoplasm of respiratory organs (principal); F17.210 Nicotine dependence, cigarettes, uncomplicated
CPT/HCPCS: 71271

== ENCOUNTER 2023-02-22 14:44 | Outpatient (REF) | payer MEDICARE, OTHER, SELFPAY ==
--- NOTE | ~2023-02-22 | US_ITS ---
EXAMINATION: US DIAGNOSTIC ULTRASOUND BREAST, RIGHT CLINICAL INFORMATION: Right breast infection, rule out abscess.. COMPARISON: None available. TECHNIQUE: Ultrasound of the right breast is performed with real-time polk scale imaging and color Doppler. The patient refused mammography due to severe pain. FINDINGS: In the retroareolar region of the right breast, there is a phlegmonous oval area measuring 4.2 x 3.2 x 3.4 cm. This has internal blood flow, and internal echoes suggesting edematous tissue, and no floating specular debris to suggest free fluid. There is good through transmission. Attempted aspiration at this time would likely yield no aspirate and yet cause significant pain and distress to the patient. If in 2 days, the patient continues to have severe pain in the retroareolar right breast, we will reassess with ultrasound is warranted. If an abscess is present, drainage is offered. Results are discussed by myself with the patient in detail at the time of visit. US/US breast RT limited mamm only IMPRESSION: No definite abscess in the retroareolar region as discussed. Rather, there is a phlegmonous rounded region of inflamed tissue with no floating specular debris, which does not appear amenable to aspiration at this time. If in 2 days, the patient continues to have severe pain in the retroareolar right breast, we will reassess with ultrasound is warranted. If an abscess is present, drainage is offered. ASSESSMENT: BI-RADS 2: Benign RECOMMENDATION: 1. Patient should be managed based on the clinical impression.
== END 2023-02-22 14:45 | disposition home or self-care (01) ==
LOC: HO.MAMMO 14:44
PROVIDERS: PCP Internal Medicine Geriatric Medicine; Visit Provider Internal Medicine Geriatric Medicine
DX: N61.1 Abscess of the breast and nipple (principal)
CPT/HCPCS: 76642

== ENCOUNTER 2023-02-23 12:40 | Outpatient (AMB) | payer MEDICARE, MEDICAID, SELFPAY ==
--- NOTE | 2023-02-23 13:05 | MHC.OFFVIS ---
Intake Vital Signs 02/23/23 13:10 Height 6 ft 1 in Weight 163 lb 2.273 oz BMI 21.5 BP 120/80 Blood Pressure Location Rt brachial Position Sitting Pulse 80 Intake Visit Reasons: Rt Breast Abcess Intake Note: Patient referred by Dr. Cruz for Rt breast abscess. Reports growth opened last night. C/o redness, tenderness. Breast US on 02-22-23. Patient on Doxy and Cephalexin. Arc Cutter Required: No Accompanied by: Spouse Allergies No Known Allergies [No Known Allergies*] Allergy (Verified 02/23/23 13:07) Medication List - Last Reconciled 02/23/23 by Ignacio Escobedo MD amlodipine 10 mg PO DAILY aspirin 81 mg PO DAILY atorvastatin 80 mg PO DAILY bisacodyl (Dulcolax (bisacodyl)) 10 mg (2 x 5 mg) PO BEDTIME 2 days cilostazol 100 mg PO BID cyclobenzaprine 5 mg PO BID finasteride 5 mg PO DAILY 90 days gabapentin 100 mg PO DAILY losartan 25 mg PO DAILY meloxicam 7.5 mg PO DAILY oxycodone-acetaminophen 5-325 mg 1 tab PO TID PRN pantoprazole 20 mg PO DAILY HPI HPI Comments History of Present Illness Details Patient presents with approximately 4-6 week history of a festering right breast abscess/mass. He underwent ultrasound yesterday and when he arrived home have spontaneous discharge/drainage of gross pus/purulence according to his significant other who was also present. He has never had such issues before. Patient was prescribed antibiotics by his medical doctor and presents here for further intervention. Chart was reviewed patient evaluated [facility] Medical History (Updated 02/04/23 @ 08:21 by Gale Allen PA-C) History of melanoma (~1989) Hypertension, essential, benign Hyperlipidemia Impaired fasting glucose Serrated adenoma of colon (~2002) Nicotine dependence, cigarettes, uncomplicated Peripheral polyneuropathy BPH w urinary obs/LUTS Elevated PSA Sensorineural hearing loss (SNHL), bilateral Surgical History (Updated 02/23/23 @ 13:53 by Ignacio Escobedo MD) History of prostate biopsy History of cataract surgery History of back surgery History of melanoma excision History of umbilical hernia repair History of colonoscopy (Updated 02/23/23 @ 13:09 by JUAN Mendez) Alcohol intake: current Alcohol intake frequency: a few times a week Alcohol type: beer Patient Tobacco Use Status: Current everyday Tobacco user Tobacco use type: Cigarette Cigarette Packs Per Day: 1 Cigarettes Per Day: 20 Years Smoked: 50 Physical Exam Vital Signs: Last Vital Signs Pulse 80 02/23/23 13:10 BP 120/80 02/23/23 13:10 BMI result Body Mass Index 21.5 Neck Other: No cervical, periclavicular, or axillary adenopathy. Chest Other: Large subareolar right breast abscess measuring approximately 4 x 3 cm. Office Procedures I&D Drain Details: Risks, benefits, alternatives of incision and drainage of right subareolar breast abscess were reviewed the patient and included but not limited to bleeding, recurrence, numbness, pain, scarring the patient was to proceed. All questions were answered. After appropriate positioning, patient underwent 1% lidocaine and Betadine prep and the supra areolar curvilinear incision was made and carried down through skin, subcutaneous tissue, or large abscess cavity was entered. Cultures were obtained. Wound was very copiously irrigated secured hemostasis. What appeared to be a cyst wall was sent to pathology . Wound was packed and dressing applied. Patient tolerated procedure well. [id number] of Skin Abscess, complex All charges added?: Procedure code (CPT) selection complete Assessment & Plan Assessment & Plan (1) Subareolar breast abscess: Code(s): N61.1 - Abscess of the breast and nipple Plan: Patient is to continue antibiotics prescribed, he also has Percocet at home, he will be given VNA services/local instructions, and will see me as directed or p.r.n.. Orders: Orders AMB Incision & Drainage Today N61.1 - Abscess of the breast and nipple Coding Level of Care Code New Pt Level 4 (77673) Diagnoses Subareolar breast abscess N61.1 CPT Codes I&D Drain - Drain 2: [id number] of Skin Abscess, complex ([id number])
[2023-02-23 13:10] VITALS: BP 120/80; PULSE 80; BMI 21.5
== END 2023-02-23 13:41 | disposition home or self-care (01) ==
PROVIDERS: PCP Internal Medicine Geriatric Medicine; Visit Provider Surgery
DX: N61.1 Abscess of the breast and nipple (principal)
CPT/HCPCS: 10060; 99204

== ENCOUNTER 2023-02-23 12:40 | Outpatient (REF) | payer MEDICARE, OTHER, SELFPAY | END 2023-02-23 12:41 | disposition home or self-care (01) | LOC: HO.LAB 12:40 | PROVIDERS: PCP Internal Medicine Geriatric Medicine; Visit Provider Surgery | DX: N61.1 Abscess of the breast and nipple (principal) | CPT/HCPCS: 10060; 87070; 87205; 88304; 99202 ==

== ENCOUNTER 2023-02-23 13:46 | Outpatient (REF) | payer MEDICARE, OTHER, SELFPAY | END 2023-02-23 13:47 | disposition home or self-care (01) | LOC: HO.LNP 13:46 | PROVIDERS: Visit Provider Surgery | DX: Z13.89 Encounter for screening for other disorder (principal) | CPT/HCPCS: 87070; 87205; 88304 ==

== ENCOUNTER → 2023-02-24 11:08 | Outpatient (BNVA) | payer MEDICARE, OTHER, SELFPAY | PROVIDERS: PCP Internal Medicine Geriatric Medicine; Visit Provider Surgery ==

== ENCOUNTER → 2023-03-01 11:24 | Outpatient (BNVA) | payer MEDICARE, OTHER, SELFPAY | PROVIDERS: PCP Internal Medicine Geriatric Medicine; Visit Provider Surgery | DX: Z48.00 Encounter for change or removal of nonsurgical wound dressing (principal) | CPT/HCPCS: 99211 ==

== ENCOUNTER 2023-03-02 13:50 | Outpatient (AMB) | payer MEDICARE, OTHER, SELFPAY ==
--- NOTE | 2023-03-02 14:00 | MHC.OFFVIS ---
Intake Vital Signs 03/02/23 14:05 Height 6 ft 1 in Weight 164 lb BMI 21.6 BP 128/63 Blood Pressure Location Rt brachial Position Sitting Pulse 88 Intake Visit Reasons: s/p I&D subareolar right breast abscess Intake Note: Patient here to f/u I&D on rt breast abscess. Reports improvement. C/o tenderness to touch. Denies oozing, itch. 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 Patient has marked improvement of his symptoms. No more packing required. Completing his antibiotic course. Presents with his significant other [facility] Medical History History of melanoma (~1989) Hypertension, essential, benign Hyperlipidemia Impaired fasting glucose Serrated adenoma of colon (~2002) Nicotine dependence, cigarettes, uncomplicated Peripheral polyneuropathy BPH w urinary obs/LUTS Elevated PSA Sensorineural hearing loss (SNHL), bilateral Surgical History History of prostate biopsy History of cataract surgery History of back surgery History of melanoma excision History of umbilical hernia repair History of colonoscopy Social History Alcohol intake: current Alcohol intake frequency: a few times a week Alcohol type: beer Patient Tobacco Use Status: Current everyday Tobacco user Tobacco use type: Cigarette Cigarette Packs Per Day: 1 Cigarettes Per Day: 20 Years Smoked: 50 Physical Exam Vital Signs: Last Vital Signs Pulse 88 03/02/23 14:05 BP 128/63 03/02/23 14:05 BMI result Body Mass Index 21.6 Chest Other: Wound is almost completely healed. Dressing applied. Assessment & Plan Assessment & Plan (1) Subareolar breast abscess: Code(s): N61.1 - Abscess of the breast and nipple Plan Patient has been given local instructions. He will see me in few weeks time. At that next visit, will discuss excision of this cyst process in more detail. All questions answered. They will see me as directed or p.r.n.. Coding Level of Care Code Global (84606) Diagnoses Subareolar breast abscess N61.1
[2023-03-02 14:05] VITALS: BP 128/63; PULSE 88; BMI 21.6
== END 2023-03-02 14:16 | disposition home or self-care (01) ==
PROVIDERS: PCP Internal Medicine Geriatric Medicine; Visit Provider Surgery
DX: N61.1 Abscess of the breast and nipple (principal)
CPT/HCPCS: 99024

== ENCOUNTER → 2023-03-02 13:50 | Outpatient (BNVA) | payer MEDICARE, OTHER, SELFPAY | PROVIDERS: PCP Internal Medicine Geriatric Medicine; Visit Provider Surgery ==

== ENCOUNTER 2023-03-23 08:58 | Outpatient (AMB) | payer MEDICARE, SELFPAY ==
--- NOTE | 2023-03-23 09:05 | A.OFFVIS_ITS ---
Intake Vital Signs 03/23/23 09:06 Height 6 ft 1 in Weight 162 lb BMI 21.4 BP 162/71 H Blood Pressure Location Lt brachial Position Sitting Pulse 54 Intake Visit Reasons: s/p I&D subareolar right breast abscess Intake Note: Patient here s/o I&D abscess on Rt breast areola. Patient reports healing well. Would like to discuss exc. 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 No wound issues or complaints [facility] Medical History History of melanoma (~1989) Hypertension, essential, benign Hyperlipidemia Impaired fasting glucose Serrated adenoma of colon (~2002) Nicotine dependence, cigarettes, uncomplicated Peripheral polyneuropathy BPH w urinary obs/LUTS Elevated PSA Sensorineural hearing loss (SNHL), bilateral Surgical History History of prostate biopsy History of cataract surgery History of back surgery History of melanoma excision History of umbilical hernia repair History of colonoscopy Social History Alcohol intake: current Alcohol intake frequency: a few times a week Alcohol type: beer Patient Tobacco Use Status: Current everyday Tobacco user Tobacco use type: Cigarette Cigarette Packs Per Day: 1 Cigarettes Per Day: 20 Years Smoked: 50 Physical Exam Vital Signs: Last Vital Signs Pulse 54 03/23/23 09:06 BP 162/71 H 03/23/23 09:06 BMI result Body Mass Index 21.4 Chest Other: Chest breath sounds bilaterally, HS 1 and 2. Complete healing of right breast abscess wound. GI Other: Abdomen soft, benign Assessment & Plan Assessment & Plan (1) Subareolar breast abscess: Code(s): N61.1 - Abscess of the breast and nipple Plan Patient as well as his private physician along with myself recommend excision of this complex cyst area. The likelihood of another recurrence is quite probable. Risks, benefits, alternatives of excision of a right subareolar breast cyst/mass reviewed with the patient and included but not limited to bleeding, infection, recurrence, numbness, pain, scarring the patient wished to proceed. All questions answered. Arrangements were made for this. Coding Level of Care Code Global (09542) Diagnoses Subareolar breast abscess N61.1
[2023-03-23 09:06] VITALS: BP 162/71; PULSE 54; BMI 21.4
== END 2023-03-23 09:31 | disposition home or self-care (01) ==
PROVIDERS: PCP Internal Medicine Geriatric Medicine; Visit Provider Surgery
DX: N61.1 Abscess of the breast and nipple (principal)
CPT/HCPCS: 99024

== ENCOUNTER → 2023-03-23 08:58 | Outpatient (BNVA) | payer MEDICARE, OTHER, SELFPAY | PROVIDERS: PCP Internal Medicine Geriatric Medicine; Visit Provider Surgery | DX: N61.1 Abscess of the breast and nipple (principal) | CPT/HCPCS: 99212 ==

== ENCOUNTER 2023-04-09 06:11 | Day surgery (SDC) | payer MEDICARE, MEDICAID, SELFPAY ==
[2023-04-07 18:36] VITALS: BMI 21.4
--- NOTE | 2023-04-08 15:07 | MHC.SHP ---
Pre-Procedural Eval Section A Date of Service: 04/08/23 The patient is an INPATIENT: No Changes since office visit: No Cold of Flu in the past 2 weeks, No New Medical Problems, No Changes in Medication and No Patient answered all questions The History & Physical has been completed within 30 days and I have reviewed it.: Yes Section B Chief Complaint: Abscess of the breast and nipple Allergies: Allergies Allergy/AdvReac Type Severity Reaction Status Date / Time No Known Allergies Allergy Verified 03/23/23 09:06 [No Known Allergies*] Plan I have reviewed the history and physical and performed a pertinent physical examination on my patient. No changes have occurred unless specified. Time Spent With Patient Time: Total time managing care of this patient today ____ minutes.
[2023-04-09 06:25] VITALS: BP 107/69; PULSE 82; RESP 16; TEMP 36.6; O2SAT 94
--- NOTE | 2023-04-09 07:25 | HO.ANESPROP2 ---
Documented by User: Diya Jara NP 04/08/23 10:45 HPI - Anesthesia Eval Consult details Narrative: 73yo M for Right Wide Local Excision Breast Mass s/p colo 07/2022 with MAC PMFSH Active Problems Active Problems: All Active Problems (Updated 04/07/23 @ 19:01 by Yrn Ritter RN) Subareolar breast abscess (Acute) Tubular adenoma of colon (Acute) Peripheral arterial disease (Acute) Failed back surgical syndrome (Acute) Lumbar degenerative disc disease (Acute) BPH w urinary obs/LUTS (Acute) Nicotine dependence, cigarettes, uncomplicated (Acute) Elevated PSA (Acute) Past Medical History Medical History (Updated 04/07/23 @ 19:01 by Yrn Ritter RN) Poor circulation of extremity Nicotine dependence, cigarettes, uncomplicated BPH w urinary obs/LUTS Elevated PSA Peripheral polyneuropathy Sensorineural hearing loss (SNHL), bilateral History of melanoma (~1989) Impaired fasting glucose Hyperlipidemia Hypertension, essential, benign Serrated adenoma of colon (~2002) Family History Family history of problems with anesthesia: No Surgical History Surgical History History of prostate biopsy History of cataract surgery History of back surgery History of melanoma excision History of umbilical hernia repair History of colonoscopy History of Problems with Anesthesia: No Social History Social History Are you a primary assurance services manager health care to a significant other at home: No Do you presently have visiting nurse or other home services: No Alcohol intake: current Alcohol intake frequency: a few times a week Alcohol type: beer Patient Tobacco Use Status: Current everyday Tobacco user Smoking Start Date: 1950 Tobacco use type: Cigarette Cigarette Packs Per Day: 1 Cigarettes Per Day: 20.0 Years Smoked: 59 Smoked in Last 30 Days: Yes Use of substances other than those prescribed or required for medical reasons: Yes Substance Use Frequency: Daily Are you DNR?: No Advance Directives: No Advance Directives Information Provided: Yes Recently lost weight without trying: No Nutrition Risks: No Nutritional Risk Meds Allergies Allergy/AdvReac Type Severity Reaction Status Date / Time No Known Allergies Allergy Verified 03/23/23 09:06 [No Known Allergies*] Home Medications Medication Instructions Recorded Confirmed Last Taken Type amlodipine 10 mg tablet 10 mg PO DAILY 04/10/21 04/07/23 Unknown History aspirin 81 mg tablet,delayed 81 mg PO DAILY 04/10/21 04/07/23 07/24/22 History release cilostazol 100 mg tablet 100 mg PO BID 04/10/21 04/07/23 Unknown History cyclobenzaprine 5 mg tablet 5 mg PO BID 04/10/21 04/07/23 Unknown History losartan 25 mg tablet 25 mg PO DAILY 04/10/21 04/07/23 Unknown History meloxicam 7.5 mg tablet 7.5 mg PO DAILY 04/10/21 04/07/23 07/24/22 History oxycodone-acetaminophen 5 mg-325 1 tab PO TID PRN Pain 04/10/21 04/07/23 Unknown History mg tablet atorvastatin 80 mg tablet 80 mg PO DAILY 10/27/21 04/07/23 Unknown History gabapentin 100 mg capsule 100 mg PO DAILY 10/27/21 04/07/23 07/28/22 History pantoprazole 20 mg tablet,delayed 20 mg PO DAILY 07/28/22 04/07/23 Unknown History release Exam Height,Weight and Vital Signs: Height 6 ft 1 in Weight 73.482 kg Pertinent Lab Results Pertinent Lab Results: Laboratory Tests 11/10/22 10:08 WBC 7.4 Hgb 16.3 Hct 48.3 Plt Count 250 Sodium 142 Potassium 4.0 Chloride 109 H Carbon Dioxide 24 BUN 11 Creatinine 0.69 Assessment and Plan Assessment Anesthesia Assessment: Chart Reviewed Final Anesthetic Review Family History of Problems with Anesthesia: No History of Problems with Anesthesia: No Documented by User: Rajni Wolf DO 04/09/23 07:27 [facility] Past Medical History Medical History (Updated 04/07/23 @ 19:01 by Yrn Ritter RN) Poor circulation of extremity Nicotine dependence, cigarettes, uncomplicated BPH w urinary obs/LUTS Elevated PSA Peripheral polyneuropathy Sensorineural hearing loss (SNHL), bilateral History of melanoma (~1989) Impaired fasting glucose Hyperlipidemia Hypertension, essential, benign Serrated adenoma of colon (~2002) Family History Family history of problems with anesthesia: No Surgical History Surgical History History of prostate biopsy History of cataract surgery History of back surgery History of melanoma excision History of umbilical hernia repair History of colonoscopy History of Problems with Anesthesia: No Social History Social History Are you a primary assurance services manager health care to a significant other at home: No Do you presently have visiting nurse or other home services: No Alcohol intake: current Alcohol intake frequency: a few times a week Alcohol type: beer Patient Tobacco Use Status: Current everyday Tobacco user Smoking Start Date: 1950 Tobacco use type: Cigarette Cigarette Packs Per Day: 1 Cigarettes Per Day: 20.0 Years Smoked: 59 Smoked in Last 30 Days: Yes Use of substances other than those prescribed or required for medical reasons: Yes Substance Use Frequency: Daily Are you DNR?: No Advance Directives: No Advance Directives Information Provided: Yes Recently lost weight without trying: No Nutrition Risks: No Nutritional Risk Meds Allergies Allergy/AdvReac Type Severity Reaction Status Date / Time No Known Allergies Allergy Verified 03/23/23 09:06 [No Known Allergies*] Home Medications Medication Instructions Recorded Confirmed Last Taken Type amlodipine 10 mg tablet 10 mg PO DAILY 04/10/21 04/07/23 Unknown History aspirin 81 mg tablet,delayed 81 mg PO DAILY 04/10/21 04/07/23 07/24/22 History release cilostazol 100 mg tablet 100 mg PO BID 04/10/21 04/07/23 Unknown History cyclobenzaprine 5 mg tablet 5 mg PO BID 04/10/21 04/07/23 Unknown History losartan 25 mg tablet 25 mg PO DAILY 04/10/21 04/07/23 Unknown History meloxicam 7.5 mg tablet 7.5 mg PO DAILY 04/10/21 04/07/23 07/24/22 History oxycodone-acetaminophen 5 mg-325 1 tab PO TID PRN Pain 04/10/21 04/07/23 Unknown History mg tablet atorvastatin 80 mg tablet 80 mg PO DAILY 10/27/21 04/07/23 Unknown History gabapentin 100 mg capsule 100 mg PO DAILY 10/27/21 04/07/23 07/28/22 History pantoprazole 20 mg tablet,delayed 20 mg PO DAILY 07/28/22 04/07/23 Unknown History release Exam Exam Date and Time: April 09, 2023724 Height,Weight and Vital Signs: Height 6 ft 1 in Weight 73.482 kg Height 6 ft 1 in Weight 73.482 kg Vital Signs Temperature 97.9 F 04/09/23 06:25 Pulse Rate 82 04/09/23 06:25 Respiratory Rate 16 04/09/23 06:25 Blood Pressure 107/69 04/09/23 06:25 Pulse Oximetry 94 04/09/23 06:25 Oxygen Delivery Method Room Air 04/09/23 06:25 Temperature 97.9 F 04/09/23 06:25 Pulse Rate 82 04/09/23 06:25 Respiratory Rate 16 04/09/23 06:25 Blood Pressure 107/69 04/09/23 06:25 Pulse Oximetry 94 04/09/23 06:25 Oxygen Delivery Method Room Air 04/09/23 06:25 Airway Mallampati Class: III (small mouth) TM Dist: >3cm Neck ROM: Limited Loose/Missing/Broken Teeth: Yes (edentulous) Heart: S1S2 Lungs: CTAB Assessment and Plan Assessment Anesthesia Assessment: Anesthesia Plan Discussed and Chart Reviewed Final Anesthetic Review Family History of Problems with Anesthesia: No History of Problems with Anesthesia: No NPO: Yes ASA Class: III Final Preanesthetic Review: No Changes in Pt Med Stat, Meds/Allgs Chart Reviewed, Consent Obtained/Reviewed and Anes Risks/Benef Reviewed Patient Risk: Intermediate Procedure Risk: Low Anesthetic Plan Anesthetic Plan: MAC: and Agree w/ Assess. and Plan Disposition: Standard PACU
[2023-04-09 08:15] VITALS: BP 115/65; PULSE 72; RESP 15; TEMP 36.4; O2SAT 99
[2023-04-09 08:30] VITALS: BP 139/79; PULSE 79; RESP 17; O2SAT 98
[2023-04-09 08:45] VITALS: BP 136/73; PULSE 77; RESP 18; TEMP 36.2; O2SAT 98
--- NOTE | 2023-04-09 08:46 | W.PM.OPN ---
Operative Note Operative Note Date of Service: 04/09/23 Narrative: Preoperative diagnosis: [] Right subareolar sebaceous cyst/mass Postop diagnosis: [] Same Procedure [] wide local excision subareolar mass/cyst Surgeon: [] Gregg Note Specialist: [] Pako Type of Anesthesia: [] Mass Indication for surgery: [] Final specimen measured approximately 5 x 3 cm consistent with a large sebaceous cyst with cicatrization and scarring Findings: [] Patient brought to the operating, placed on operative table in supine position, after adequate level of MAC anesthesia was induced, the right chest area was prepped and draped in usual sterile fashion. Using a supra-areolar by elliptical incision encompassing the lesion in question, this carried down through skin, subcutaneous tissue, and excision of the subareolar area and superiorly of the mass in question was performed using sharp dissection and Bovie. Specimen sent to pathology. Wound was irrigated, secured hemostasis, and closed using interrupted inverted dermal 3-0 Vicryl sutures followed by Steri-Strips and sterile dressings. Wound was infiltrated 0.5% Marcaine/1% lidocaine a at the beginning and end of the case. Sponge, needle, instrument counts reported correct. Patient tolerated the procedure well and emerged anesthesia stable condition. EBL minimal
== END 2023-04-09 09:09 | disposition home or self-care (01) ==
PROVIDERS: PCP Internal Medicine Geriatric Medicine; Visit Provider Surgery
PROC: (CPT 19120; principal; 2023-04-09 07:30)
DX: N61.1 Abscess of the breast and nipple (principal); N60.49 Mammary duct ectasia of unspecified breast; N60.31 Fibrosclerosis of right breast; N62 Hypertrophy of breast; Z85.820 Personal history of malignant melanoma of skin; E78.5 Hyperlipidemia, unspecified; R73.01 Impaired fasting glucose; G62.9 Polyneuropathy, unspecified; F17.210 Nicotine dependence, cigarettes, uncomplicated; Z98.890 Other specified postprocedural states
CPT/HCPCS: 19120; 88305; J0690; J2250; J2704; J2795; J3010

== ENCOUNTER → 2023-04-09 06:11 | Outpatient (BNV) | payer MEDICARE, SELFPAY | PROVIDERS: PCP Internal Medicine Geriatric Medicine; Visit Provider Surgery | DX: N61.1 Abscess of the breast and nipple (principal) | CPT/HCPCS: 19120 ==

== ENCOUNTER 2023-04-15 10:49 | Outpatient (REF) | payer MEDICARE, MEDICAID, SELFPAY ==
[2023-04-15 13:20] LABS: Prostate Specific Antigen 1.94 ng/mL (<0.05-4.0)
== END 2023-04-15 10:50 | disposition home or self-care (01) ==
LOC: HO.LAB 10:49
PROVIDERS: PCP Internal Medicine Geriatric Medicine; Visit Provider Urology
DX: R97.20 Elevated prostate specific antigen [PSA] (principal); Z12.5 Encounter for screening for malignant neoplasm of prostate
CPT/HCPCS: 36415; 84153

== ENCOUNTER 2023-04-16 09:44 | Outpatient (AMB) | payer MEDICARE, SELFPAY ==
--- NOTE | 2023-04-16 09:50 | MHC.OFFVIS ---
Intake Intake Visit Reasons: 6M PSA(set) Intake Note: Patient is Present for Telephone Follow Up PSA Urology Med: Finasteride Antibiotic Allergy:None Blood Thinner: Aspirin PSA: 04/15/2023 1.94 Allergies No Known Allergies [No Known Allergies*] Allergy (Verified 04/16/23 09:51) Medication List - Last Reconciled 04/16/23 by Hamzah Nuno MD amlodipine 10 mg PO DAILY aspirin 81 mg PO DAILY atorvastatin 80 mg PO DAILY cilostazol 100 mg PO BID cyclobenzaprine 5 mg PO BID finasteride 5 mg PO DAILY 90 days gabapentin 100 mg PO DAILY hydrocodone-acetaminophen 5-325 mg 1 tab PO Q4-6H PRN losartan 25 mg PO DAILY meloxicam 7.5 mg PO DAILY oxycodone-acetaminophen 5-325 mg 1 tab PO TID PRN pantoprazole 20 mg PO DAILY HPI HPI Comments History of Present Illness Details Kaiser is a pleasant male. He is a patient of Dr. Cruz. He is seen for the following urologic conditions - elevated PSA - lower urinary tract symptoms Telemedicine Evaluation 15 min Consultation [employer] Video attempted PSA 1. May reduce finasteride to every other day 6m f/u office PSA Elevated PSA He presents for - continued evaluation elevated PSA Current management is - finasteride Laboratory investigations include - a total PSA evaluation - 01/23 4.4, 10/24 5.4, 02/24 7.4 18%. 10/25 2.0 on finasteride, 04/28 1.9 Imaging investigations include - a prostate MRI no Individualized Prostate Cancer Risk Calculator - less than 5% A TRUS biopsy - 04/27 - 55gm prostate 04/16 core suspicious but not diagnostic Symptoms include - minimal symptoms - are stable Overall symptoms are mild . Therapeutic plan will be - continue follow PSA every 6 months [facility] Medical History (Updated 04/07/23 @ 19:01 by Yrn Ritter RN) Poor circulation of extremity Nicotine dependence, cigarettes, uncomplicated BPH w urinary obs/LUTS Elevated PSA Peripheral polyneuropathy Sensorineural hearing loss (SNHL), bilateral History of melanoma (~1989) Impaired fasting glucose Hyperlipidemia Hypertension, essential, benign Serrated adenoma of colon (~2002) Surgical History History of prostate biopsy History of cataract surgery History of back surgery History of melanoma excision History of umbilical hernia repair History of colonoscopy Social History Are you a primary critical care nurse to a significant other at home: No Do you presently have visiting nurse or other home services: No Alcohol intake: current Alcohol intake frequency: a few times a week Alcohol type: beer Comment: COUNTS ARE CORRECT Patient Tobacco Use Status: Current everyday Tobacco user Smoking Start Date: 1950 Tobacco use type: Cigarette Cigarette Packs Per Day: 1 Cigarettes Per Day: 20.0 Years Smoked: 59 Review of Systems Const All systems reviewed & are unremarkable except as noted in HPI and below Reports no additional complaints Resp Reports no additional complaints GI Reports no additional complaints Reports as per HPI Musc Reports no additional complaints Physical Exam Telemedicine evaluation Appropriate responses Regular breathing rate and rhythm HEENT Head: Yes normal to inspection Ears: hearing grossly normal bilaterally Eyes General: appearance normal, both eyes and all related structures Neck Neck: Yes normal visual inspection Chest Chest palpation & inspection: normal inspection of the chest Resp Effort & Inspection: normal respiratory effort and able to speak in complete sentences Assessment & Plan Assessment & Plan (1) BPH w urinary obs/LUTS: Code(s): N40.1 - Benign prostatic hyperplasia with lower urinary tract symptoms; N13.8 - Other obstructive and reflux uropathy (2) Elevated PSA: Code(s): R97.20 - Elevated prostate specific antigen [PSA] Plan Six month follow-up PSA Orders: Orders Prostate Specific Antigen 6 Months N13.8 - Other obstructive and reflux uropathy, N40.1 - Benign prostatic hyperplasia with lower urinary tract symptoms Medications: Refilled finasteride 5 mg PO DAILY 90 tabs 1RF 90 days N13.8 - Other obstructive and reflux uropathy, N40.1 - Benign prostatic hyperplasia with lower urinary tract symptoms, R33.9 - Retention of urine, unspecified Patient Instructions: Imaging studies, laboratory and physical exam results were discussed and reviewed in detail. No major barriers to patient understanding were identified. An opportunity to ask questions regarding the treatment plan was provided. All questions were answered. The patient expressed understanding and agreement with the above treatment plan. The patient is aware they should contact our office by phone for worsening of their current condition or the appearance of new urologic symptoms. Compliance is encouraged with any medications and followup testing that is ordered. It is a privilege to participate in the urologic care of your patient. If you have any questions or concerns regarding treatment for the above conditions, or other urologic issues, please do not hesitate to contact me. The office telephone contact is [phone]. This note is constructed using voice recognition software. While every effort has been made to ensure accuracy pickling machine operator errors may have been included. Yours sincerely, Dr Hamzah Nuno MD, [facility] - Urology Providers of Expert, Compassionate Care for the Genitourinary System Telehealth Telehealth Location of provider rendering services: practice address Location of patient: address on file Patient Identification confirmed using: Name, : Yes Telehealth method: video Patient verbally consented to treatment: Yes Patient verbally consented to billing insurance company: Yes Patient informed of any privacy concerns related to visit: Yes Coding Level of Care Code Tele Est Pt Level 3 (32405) Diagnoses BPH w urinary obs/LUTS N40.1; N13.8 Elevated PSA R97.20
== END 2023-04-16 10:14 | disposition home or self-care (01) ==
LOC: HO.HUSH 09:44
PROVIDERS: PCP Internal Medicine Geriatric Medicine; Visit Provider Urology
DX: N40.1 Benign prostatic hyperplasia with lower urinary tract symptoms (principal); N13.8 Other obstructive and reflux uropathy; R97.20 Elevated prostate specific antigen [PSA]
CPT/HCPCS: 99213

== ENCOUNTER → 2023-04-16 09:44 | Outpatient (BNVA) | payer MEDICARE, SELFPAY | PROVIDERS: PCP Internal Medicine Geriatric Medicine; Visit Provider Urology ==

== ENCOUNTER 2023-04-19 10:02 | Outpatient (AMB) | payer MEDICARE, SELFPAY ==
[2023-04-19 10:17] VITALS: BP 141/68; PULSE 94
--- NOTE | 2023-04-19 10:17 | MHC.OFFVIS ---
Intake Vital Signs 04/19/23 10:17 Weight 159 lb BP 141/68 H Blood Pressure Location Rt brachial Position Sitting Pulse 94 Intake Visit Reasons: S/P WLE Rt breast mass Intake Note: Patient here s/p WLE Rt subareolar mass. Reports incision healing well. Patient c/o: redness. Denies pain, irritation. Corrugator Operator Helper Required: No Accompanied by: Spouse Allergies No Known Allergies [No Known Allergies*] Allergy (Verified 04/19/23 10:18) HPI HPI Comments History of Present Illness Details Patient presents with his . He has no wound issues or complaints. Pathology was reviewed. [facility] Medical History Poor circulation of extremity Nicotine dependence, cigarettes, uncomplicated BPH w urinary obs/LUTS Elevated PSA Peripheral polyneuropathy Sensorineural hearing loss (SNHL), bilateral History of melanoma (~1989) Impaired fasting glucose Hyperlipidemia Hypertension, essential, benign Serrated adenoma of colon (~2002) Surgical History History of prostate biopsy History of cataract surgery History of back surgery History of melanoma excision History of umbilical hernia repair History of colonoscopy Social History Are you a primary residential caregiver to a significant other at home: No Do you presently have visiting nurse or other home services: No Alcohol intake: current Alcohol intake frequency: a few times a week Alcohol type: beer Comment: COUNTS ARE CORRECT Patient Tobacco Use Status: Current everyday Tobacco user Smoking Start Date: 1950 Tobacco use type: Cigarette Cigarette Packs Per Day: 1 Cigarettes Per Day: 20.0 Years Smoked: 59 Physical Exam Vital Signs: Last Vital Signs Pulse 94 04/19/23 10:17 BP 141/68 H 04/19/23 10:17 Chest Other: Right chest wound clean dry and intact healing uneventfully Assessment & Plan Assessment & Plan (1) Subareolar breast abscess: Code(s): N61.1 - Abscess of the breast and nipple Plan Patient has been given local wound instructions, and will follow-up p.r.n. Coding Level of Care Code Global (50240) Diagnoses Subareolar breast abscess N61.1
== END 2023-04-19 10:21 | disposition home or self-care (01) ==
PROVIDERS: PCP Internal Medicine Geriatric Medicine; Visit Provider Surgery
DX: N61.1 Abscess of the breast and nipple (principal)
CPT/HCPCS: 99024

== ENCOUNTER → 2023-04-19 10:02 | Outpatient (BNVA) | payer MEDICARE, MEDICAID, SELFPAY | PROVIDERS: PCP Internal Medicine Geriatric Medicine; Visit Provider Surgery | DX: N61.1 Abscess of the breast and nipple (principal) | CPT/HCPCS: 99212 ==

== ENCOUNTER 2023-06-25 11:07 | Outpatient (REF) | payer MEDICARE, MEDICAID, SELFPAY ==
[2023-06-25 13:57] LABS: TSH reflex Free T4 2.94 uIU/mL (0.32-4.0)
== END 2023-06-25 11:08 | disposition home or self-care (01) ==
LOC: HO.HHCL 11:07
PROVIDERS: Visit Provider Internal Medicine Geriatric Medicine
DX: I49.9 Cardiac arrhythmia, unspecified (principal); I49.3 Ventricular premature depolarization
CPT/HCPCS: 36415; 84443

== ENCOUNTER → 2023-07-16 09:55 | Outpatient (REF) | payer MEDICARE, MEDICAID, SELFPAY ==
--- NOTE | 2023-07-16 09:59 | CA_ITS ---
Transthoracic Echocardiogram Patient (Last, First, Middle): Kaiser Rose S Gender: Male Date of : 1950 Age: 73 Procedure Date: 07/16/2023 Procedure Type: Transthoracic Echocardiogram Location: OP Height: 175. cm Weight: 74.84 kg BSA: 1.90 m2 Heart Rate: 84 bpm BP: 150 / 60 mmHg [place] Tour Guide: BERTHA Referring MD: Luigi Cruz MD Symptoms: VENTRICULAR PREMATURE DEPOLARIZATION Study Quality: Adequate ECG Rhythm: Frequent ventricular premature beats Conclusions: - Normal left ventricular size, thickness, systolic function, and wall motion. The visually estimated ejection fraction is between 55-60%. Diastolic function is indeterminate on the basis of available data. Frequent PVCs during the scan which affected RWMA/EF assessment but appears overall normal. - Normal right ventricular cavity size and systolic function. Findings Left Ventricle Normal left ventricular size, thickness, systolic function, and wall motion. The visually estimated ejection fraction is between 55-60%. Diastolic function is indeterminate on the basis of available data. Frequent PVCs during the scan which affected RWMA/EF assessment but appears overall normal. Right Ventricle Normal right ventricular cavity size and systolic function. Atria The left atrium is normal in size. The right atrium is normal in size. Aortic Valve Normal aortic valve structure and function. There is no aortic valve stenosis. There is no aortic valve regurgitation. Mitral Valve Normal mitral valve structure and function. There is no mitral valve regurgitation. There is no mitral valve stenosis. Pulmonic Valve Normal pulmonic valve structure and function. There is no pulmonic valve regurgitation. Tricuspid Valve Normal tricuspid valve structure and function. Tricuspid regurgitation envelope is inadequate for calculation of right ventricular systolic pressure. Normal right atrial pressure. Great Vessels All visible segments of the aorta are normal in size. Venous The inferior vena cava is normal in size and collapses greater than 50% with inspiration. Pericardium/Pleural There is no evidence of pericardial effusion. Prior Study Comparison No prior study available for comparison. Measurements 2D Linear Measurements IVSd: 0.86 0.6-0.9/0.6-1.0 cm LVIDd: 4.35 3.9-5.3/4.2-5.9 cm LVIDd Index: 2.29 2.4-3.2/2.2-3.1 cm/m2 LVIDs: 2.74 2.0-3.6 cm LVPWd: 0.92 0.7-1.1 cm LA Diam: 3.30 2.7-3.8/3.0-4.0 cm LAIDs Index: 1.74 1.5-2.3 cm/m2 LV Mass: 154.07 67-162/88-224 g LV Mass Index: 81.09 43-95/49-115 g/m2 LVOT Diam: 2.00 3.0+(-)1.3 cm 2D Systolic Function EF 4C: 62.60 >55% EF 2C: 68.90 >55% EF BiP: 65.10 >55% Mitral Valve MV Pk E: 0.89 MV PK A: 1.18 MV Decel Time: 242.00 E/A: 0.80 E'Lateral: 9.79 E'Medial: 5.66 E/E' Med: 15.80 E/E' Lat: 9.10 PHT: 71.00 MVA PHT: 3.10 Decel Tate: 3.68 Aortic Valve AoV Pk Juan: 1.57 AoV Mn Juan: 1.07 AoV VTI: 0.34 AoV Pk Grad: 10.00 Aov Mn Grad: 5.00 SARAH Cont.VTI: 2.22 LVOT LVOT Pk Juan: 1.10 LVOT Mn Juan: 0.75 LVOT VTI: 0.24 LVOT Pk Grad: 5.00 LVOT Mn Grad: 3.00 LVOT Diam: 2.00 LVOT Area: 3.14 Diastolic Function MV Pk E: 0.89 MV Pk A: 1.18 E/A: 0.80 E'Medial: 5.66 E/E' Med: 15.80 E' Laterial: 9.79 E/E' Lat: 9.10 Right Ventricle TAPSE (mm): 19.50 TVS' Juan: 15.20 Tricuspid Valve RA Press: 3.00 Great Vessels Aorta Sinus of Valsalva: 3.60 2.0-3.5 cm Ao Asc: 3.00 2.1-3.4 cm Pulmonary Valve PV Pk Juan: 1.44 Peak PV Grad: 8.00 Updated in Other Vendor System with Status of Final Solomon Cervantes MD electronically signed on 07/17/2023 9:03:48 PM with status of Final
== END ==
LOC: HO.CARD 09:55
PROVIDERS: PCP Internal Medicine Geriatric Medicine; Visit Provider Internal Medicine Geriatric Medicine
DX: I49.3 Ventricular premature depolarization (principal)
CPT/HCPCS: 93306

== ENCOUNTER → 2023-07-16 09:59 | Outpatient (BNV) | payer MEDICARE, MEDICAID, SELFPAY | PROVIDERS: PCP Internal Medicine Geriatric Medicine; Visit Provider Internal Medicine Cardiovascular Disease | DX: I49.3 Ventricular premature depolarization (principal) | CPT/HCPCS: 93306 ==

== ENCOUNTER 2023-11-22 10:39 | Outpatient (REF) | payer MEDICARE, SELFPAY ==
[2023-11-22 12:03] LABS: Prostate Specific Antigen 4.18 ng/mL (<0.05-4.0)
== END 2023-11-22 10:40 | disposition home or self-care (01) ==
LOC: HO.LAB 10:39
PROVIDERS: PCP Internal Medicine Geriatric Medicine; Visit Provider Urology
DX: N40.1 Benign prostatic hyperplasia with lower urinary tract symptoms (principal); N13.8 Other obstructive and reflux uropathy; Z12.5 Encounter for screening for malignant neoplasm of prostate
CPT/HCPCS: 36415; 84153

== ENCOUNTER 2023-11-26 10:51 | Outpatient (AMB) | payer MEDICARE, SELFPAY ==
--- NOTE | 2023-11-26 11:56 | A.OFFVIS_ITS ---
Intake Visit Reasons: 6M Follow up-PSA(set)Elevated PSA Intake Note: Patient is Present for Follow Up PSA Urology Medication: Finasteride Antibiotic Allergies: None Blood Thinners:Aspirin Charge Master Analyst Required: No Allergies No Known Allergies [No Known Allergies*] Allergy (Verified 11/26/23 11:58) Medication List - Last Reconciled 11/26/23 by Hamzah Nuno MD amlodipine 10 mg PO DAILY aspirin 81 mg PO DAILY atorvastatin 80 mg PO DAILY cilostazol 100 mg PO BID cyclobenzaprine 5 mg PO BID finasteride 5 mg PO DAILY 90 days gabapentin 100 mg PO DAILY hydrocodone-acetaminophen 5-325 mg 1 tab PO Q4-6H PRN losartan 25 mg PO DAILY meloxicam 7.5 mg PO DAILY oxycodone-acetaminophen 5-325 mg 1 tab PO TID PRN pantoprazole 20 mg PO DAILY peg 3350-electrolytes 236-22.74-6.74 -5.86 gram (Golytely) 240 mL PO Q10M 1 day HPI Comments Details: Kaiser is a pleasant male. He is a patient of Dr. Cruz. He is seen for the following urologic conditions - elevated PSA - lower urinary tract symptoms Six-month follow-up Slight rise on PSA finasteride daily Four month follow-up If remains elevated would get MRI Elevated PSA He presents for - continued evaluation elevated PSA Current management is - finasteride Laboratory investigations include - a total PSA evaluation - 01/23 4.4, 10/24 5.4, 02/24 7.4 18%. 10/25 2.0 on finasteride, 04/28 1.9, 11/26 4.2 Imaging investigations include - a prostate MRI no Individualized Prostate Cancer Risk Calculator - less than 5% A TRUS biopsy - 04/27 - 55gm prostate 04/16 core suspicious but not diagnostic Symptoms include - minimal symptoms - are stable Overall symptoms are mild . Therapeutic plan will be - continue follow PSA every 6 months [facility] Medical History Poor circulation of extremity Nicotine dependence, cigarettes, uncomplicated BPH w urinary obs/LUTS Elevated PSA Peripheral polyneuropathy Sensorineural hearing loss (SNHL), bilateral History of melanoma (~1989) Impaired fasting glucose Hyperlipidemia Hypertension, essential, benign Serrated adenoma of colon (~2002) Surgical History (Updated 12/02/23 @ 15:03 by Alivia Candelaria RN) Hx of excision of mass History of prostate biopsy History of cataract surgery History of back surgery History of melanoma excision History of umbilical hernia repair History of colonoscopy Social History Are you a primary manager career to a significant other at home: No Do you presently have visiting nurse or other home services: No Alcohol intake: current Alcohol intake frequency: a few times a week Alcohol type: beer Comment: COUNTS ARE CORRECT Patient Tobacco Use Status: Current everyday Tobacco user Smoking Start Date: 1950 Tobacco use type: Cigarette Cigarette Packs Per Day: 1 Cigarettes Per Day: 20.0 Years Smoked: 59 Review of Systems Const Denies chills and Denies fever(s) Card Reports no additional complaints and Denies syncope Resp Denies cough GI Denies abdominal pain and Denies heartburn Reports as per HPI and Denies change in libido Neuro Denies syncope Psych Denies change in libido Endo Denies change in libido Physical Exam Const General: cooperative, healthy appearing, comfortable and no acute distress Orientation/consciousness: patient oriented x3 HEENT Face and sinus: Yes normal facial exam Mouth: moist mucous membranes Neck Neck: Yes normal visual inspection, Yes full ROM and Yes trachea midline Chest Chest palpation & inspection: normal inspection of the chest Resp Effort & Inspection: normal respiratory effort, able to speak in complete sentences and no respiratory distress GI Inspection: Yes normal to inspection Back/Spine/Pelvis Cervical Spine: normal cervical lordosis Thoracic/Lumbar Spine: thoracic and lumbar spine normal to inspection Skin General skin exam: no rashes or lesions noted Neuro General: patient oriented x3, gait normal, tone normal and moves all extremities Extrem General: Yes normal to inspection and Yes capillary refill normal Assessment & Plan Assessment & Plan (1) BPH w urinary obs/LUTS: Code(s): N40.1 - Benign prostatic hyperplasia with lower urinary tract symptoms; N13.8 - Other obstructive and reflux uropathy Category: Medical Plan Four month follow-up PSA tele Orders: Orders PSA,Total (Free>4and<10) 4 Months R97.20 - Elevated prostate specific antigen [PSA] Patient Instructions: Imaging studies, laboratory and physical exam results were discussed and reviewed in detail. No major barriers to patient understanding were identified. An opportunity to ask questions regarding the treatment plan was provided. All questions were answered. The patient expressed understanding and agreement with the above treatment plan. The patient is aware they should contact our office by phone for worsening of their current condition or the appearance of new urologic symptoms. Compliance is encouraged with any medications and followup testing that is ordered. It is a privilege to participate in the urologic care of your patient. If you have any questions or concerns regarding treatment for the above conditions, or other urologic issues, please do not hesitate to contact me. The office telephone contact is [phone]. This note is constructed using voice recognition software. While every effort has been made to ensure accuracy cigar tobacco processing supervisor errors may have been included. Yours sincerely, Dr Hamzah Nuno MD, [facility] - Urology Providers of Expert, Compassionate Care for the Genitourinary System Coding Level of Care Code Est Pt Level 3 (46552) Diagnoses BPH w urinary obs/LUTS N40.1; N13.8
== END 2023-11-26 12:28 | disposition home or self-care (01) ==
PROVIDERS: PCP Internal Medicine Geriatric Medicine; Visit Provider Urology
DX: N40.1 Benign prostatic hyperplasia with lower urinary tract symptoms (principal); N13.8 Other obstructive and reflux uropathy
CPT/HCPCS: 99213

== ENCOUNTER → 2023-11-26 10:51 | Outpatient (BNVA) | payer MEDICARE, SELFPAY | PROVIDERS: PCP Internal Medicine Geriatric Medicine; Visit Provider Urology | DX: N40.1 Benign prostatic hyperplasia with lower urinary tract symptoms (principal); N13.8 Other obstructive and reflux uropathy; R97.20 Elevated prostate specific antigen [PSA] | CPT/HCPCS: 99212 ==

== ENCOUNTER 2024-02-16 11:59 | Outpatient (REF) | payer MEDICARE, MEDICAID, SELFPAY ==
[2024-02-16 13:35] LABS: Alanine Aminotransferase 16 U/L (0-40); Albumin Level 4.5 g/dL (3.5-5.0); Alkaline Phosphatase 63 U/L (39-117); Anion Gap 13 (12-20); Aspartate Amino Transferase 20 U/L (5-37); Bilirubin Total 0.8 mg/dL (0.0-1.0); Blood Urea Nitrogen 11 mg/dL (9-16); Calcium 9.9 mg/dL (8.4-10.2); Carbon Dioxide 26 mmol/L (22-29); Chloride 106 mmol/L (96-108); Cholesterol 131 mg/dL (<200); Estimated Glomerular Filt Rate > 60; Glucose Random 119 mg/dL (60-115); HDL Cholesterol 33 mg/dL (>40); LDL Cholesterol Calculated 75 mg/dL (<100); Potassium 4.5 mmol/L (3.3-5.1); Sodium 140 mmol/L (135-145); Total Protein 7.6 g/dL (6.5-8.0); Triglycerides 118 mg/dL (<150)
[2024-02-16 13:52] LABS: PSA,Total (Free>4and<10) 2.86 ng/mL (0.00-4.00)
== END 2024-02-16 12:00 | disposition home or self-care (01) ==
LOC: HO.LAB 11:59
PROVIDERS: Urology; PCP Internal Medicine Geriatric Medicine; Visit Provider Internal Medicine Geriatric Medicine
DX: Z79.899 Other long term (current) drug therapy (principal); R97.20 Elevated prostate specific antigen [PSA]; Z12.5 Encounter for screening for malignant neoplasm of prostate
CPT/HCPCS: 36415; 80053; 80061; 84153

== ENCOUNTER 2024-03-23 09:48 | Outpatient (AMB) | payer MEDICARE, SELFPAY ==
--- NOTE | 2024-03-23 09:57 | A.OFFVIS_ITS ---
Intake Visit Reasons: 6m/PSA(set) Intake Note: Patient is present for 6M/PSA Urology Medication:FINASTERIDE Antibiotic Allergy:NONE Blood Thinner:ASPIRIN Historical Interpreter Required: No Allergies No Known Allergies [No Known Allergies*] Allergy (Verified 03/23/24 09:58) HPI Comments Details: Kaiser is a pleasant male. He is a patient of Dr. Cruz. He is seen for the following urologic conditions - elevated PSA - lower urinary tract symptoms Four month follow-up after PSA rise PSA fall into 2.8 Continue finasteride Follow-up 12 months Elevated PSA He presents for - continued evaluation elevated PSA Current management is - finasteride Laboratory investigations include - a total PSA evaluation - 01/23 4.4, 10/24 5.4, 02/24 7.4 18%. 10/25 2.0 on finasteride, 04/28 1.9, 11/26 4.2, 03/28 2.8 Imaging investigations include - a prostate MRI no Individualized Prostate Cancer Risk Calculator - less than 5% A TRUS biopsy - 04/27 - 55gm prostate 04/16 core suspicious but not diagnostic Symptoms include - minimal symptoms - are stable Overall symptoms are mild . Therapeutic plan will be - continue follow PSA every 6 months [facility] Medical History Poor circulation of extremity Nicotine dependence, cigarettes, uncomplicated BPH w urinary obs/LUTS Elevated PSA Peripheral polyneuropathy Sensorineural hearing loss (SNHL), bilateral History of melanoma (~1989) Impaired fasting glucose Hyperlipidemia Hypertension, essential, benign Serrated adenoma of colon (~2002) Surgical History (Updated 12/02/23 @ 15:03 by Alivia Candelaria RN) Hx of excision of mass History of prostate biopsy History of cataract surgery History of back surgery History of melanoma excision History of umbilical hernia repair History of colonoscopy Social History Are you a primary pulmonary care nurse to a significant other at home: No Do you presently have visiting nurse or other home services: No Alcohol intake: current Alcohol intake frequency: a few times a week Alcohol type: beer Comment: COUNTS ARE CORRECT Patient Tobacco Use Status: Current everyday Tobacco user Smoking Start Date: 1950 Tobacco use type: Cigarette Cigarette Packs Per Day: 1 Cigarettes Per Day: 20.0 Years Smoked: 59 Review of Systems Const Denies chills and Denies fever(s) Card Reports no additional complaints and Denies syncope Resp Denies cough GI Denies abdominal pain and Denies heartburn Reports as per HPI and Denies change in libido Neuro Denies syncope Psych Denies change in libido Endo Denies change in libido Physical Exam Const General: cooperative, healthy appearing, comfortable and no acute distress Orientation/consciousness: patient oriented x3 HEENT Face and sinus: Yes normal facial exam Mouth: moist mucous membranes Neck Neck: Yes normal visual inspection, Yes full ROM and Yes trachea midline Chest Chest palpation & inspection: normal inspection of the chest Resp Effort & Inspection: normal respiratory effort, able to speak in complete sentences and no respiratory distress GI Inspection: Yes normal to inspection Back/Spine/Pelvis Cervical Spine: normal cervical lordosis Thoracic/Lumbar Spine: thoracic and lumbar spine normal to inspection Skin General skin exam: no rashes or lesions noted Neuro General: patient oriented x3, gait normal, tone normal and moves all extremities Extrem General: Yes normal to inspection and Yes capillary refill normal Results AMB Urinalysis, Automated UA Leukoctes 15 Viraj/uL Last Edit by HUNTER Joshi on 03/23/24 10:10 UA Nitrite Negative Last Edit by HUNTER Joshi on 03/23/24 10:10 UA Urobilinogen 1 mg/dL Last Edit by HUNTER Joshi on 03/23/24 10:10 UA Protein 30 mg/dL Last Edit by HUNTER Joshi on 03/23/24 10:10 UA pH 6.0 Last Edit by HUNTER Joshi on 03/23/24 10:10 UA Blood 0 Mervin/uL Last Edit by HUNTER Joshi on 03/23/24 10:10 UA Specific Cecil 1.030 Last Edit by HUNTER Joshi on 03/23/24 10: 10 UA Ketone Positive Last Edit by HUNTER Joshi on 03/23/24 10:10 UA Bilirubin 1 mg/dL Last Edit by HUNTER Joshi on 03/23/24 10:10 UA Glucose 0 mg/dL Last Edit by HUNTER Joshi on 03/23/24 10:10 Results Reviewed Results Reviewed: Laboratory Last Values Urine pH (Auto) 6.0 03/23/24 10:10 Specific Cecil (Auto) 1.030 03/23/24 10:10 Urine Protein (Auto) 30 mg/dL 03/23/24 10:10 Glucose (UA)(Auto) 0 mg/dL 03/23/24 10:10 Urine Ketones (Auto) Positive 03/23/24 10:10 Urine Blood (Auto) 0 Mervin/uL 03/23/24 10:10 Urine Nitrite (Auto) Negative 03/23/24 10:10 Urine Bilirubin (Auto) 1 mg/dL 03/23/24 10:10 Urine Urobilinogen (Auto) 1 mg/dL 03/23/24 10:10 Leukocyte Esterase (Auto) 15 Viraj/uL 03/23/24 10:10 Assessment & Plan Assessment & Plan (1) BPH w urinary obs/LUTS: Code(s): N40.1 - Benign prostatic hyperplasia with lower urinary tract symptoms; N13.8 - Other obstructive and reflux uropathy Category: Medical (2) Elevated PSA: Code(s): R97.20 - Elevated prostate specific antigen [PSA] Category: Medical Plan 12 month follow-up PSA and PVR Orders: Orders AMB Urinalysis Automated Today Z13.9 - Encounter for screening, unspecified Prostate Specific Antigen 364 Days N13.8 - Other obstructive and reflux uropathy, N40.1 - Benign prostatic hyperplasia with lower urinary tract symptoms Medications: Refilled finasteride 5 mg PO DAILY 90 days 90 tabs 3RF N13.8 - Other obstructive and reflux uropathy, N40.1 - Benign prostatic hyperplasia with lower urinary tract symptoms, R33.9 - Retention of urine, unspecified Patient Instructions: Imaging studies, laboratory and physical exam results were discussed and reviewed in detail. No major barriers to patient understanding were identified. An opportunity to ask questions regarding the treatment plan was provided. All questions were answered. The patient expressed understanding and agreement with the above treatment plan. The patient is aware they should contact our office by phone for worsening of their current condition or the appearance of new urologic symptoms. Compliance is encouraged with any medications and followup testing that is ordered. It is a privilege to participate in the urologic care of your patient. If you have any questions or concerns regarding treatment for the above conditions, or other urologic issues, please do not hesitate to contact me. The office telephone contact is [phone]. This note is constructed using voice recognition software. While every effort has been made to ensure accuracy laboratory geneticist errors may have been included. Yours sincerely, Dr Hamzah Nuno MD, [facility] - Urology Providers of Expert, Compassionate Care for the Genitourinary System Coding Level of Care Code Est Pt Level 3 (68094) Diagnoses BPH w urinary obs/LUTS N40.1; N13.8 Elevated PSA R97.20
== END 2024-03-23 10:54 | disposition home or self-care (01) ==
PROVIDERS: PCP Internal Medicine Geriatric Medicine; Visit Provider Urology
DX: N40.1 Benign prostatic hyperplasia with lower urinary tract symptoms (principal); N13.8 Other obstructive and reflux uropathy; R97.20 Elevated prostate specific antigen [PSA]; Z13.9 Encounter for screening, unspecified
CPT/HCPCS: 99213

== ENCOUNTER → 2024-03-23 09:48 | Outpatient (BNVA) | payer MEDICARE, SELFPAY | PROVIDERS: PCP Internal Medicine Geriatric Medicine; Visit Provider Urology | DX: N40.1 Benign prostatic hyperplasia with lower urinary tract symptoms (principal); N13.8 Other obstructive and reflux uropathy; R97.20 Elevated prostate specific antigen [PSA] | CPT/HCPCS: 81003; 99212 ==

== ENCOUNTER 2024-08-25 12:08 | Outpatient (REF) | payer MEDICARE, MEDICAID, SELFPAY ==
[2024-08-25 14:19] LABS: Alanine Aminotransferase 12 U/L (0-40); Albumin Level 4.4 g/dL (3.5-5.0); Alkaline Phosphatase 59 U/L (39-117); Anion Gap 10 (12-20); Aspartate Amino Transferase 18 U/L (5-37); Bilirubin Total 0.8 mg/dL (0.0-1.0); Blood Urea Nitrogen 12 mg/dL (9-16); Carbon Dioxide 27 mmol/L (22-29); Chloride 110 mmol/L (96-108); Cholesterol 89 mg/dL (<200); Estimated Glomerular Filt Rate > 60; Glucose Random 103 mg/dL (60-115); HDL Cholesterol 29 mg/dL (>40); LDL Cholesterol Calculated 44 mg/dL (<100); Sodium 143 mmol/L (135-145); Total Protein 6.9 g/dL (6.5-8.0); Triglycerides 83 mg/dL (<150)
== END 2024-08-25 12:09 | disposition home or self-care (01) ==
LOC: HO.HHCL 12:08
PROVIDERS: Visit Provider Internal Medicine Geriatric Medicine
DX: I10 Essential (primary) hypertension (principal); I49.3 Ventricular premature depolarization; F17.200 Nicotine dependence, unspecified, uncomplicated; R73.01 Impaired fasting glucose
CPT/HCPCS: 36415; 80053; 80061

== ENCOUNTER 2025-02-13 10:59 | Outpatient (REF) | payer MEDICARE, MEDICAID, SELFPAY ==
--- OUTSIDE RECORDS SUMMARY | 2025-02-07 10:30 | XMS_ITS | Encounter Summary ---
Author Organization [employer] Address [address] [facility] [address] [place] [address] Care Team Providers Care Flower Grower Name Role Phone Name, Luigi TIJERINA Primary Care Provider [phone] Reason for Visit * Reason Comments Blood Pressure Check Encounter Details Date Type Department Care Team (Latest Contact Info) Description 02/07/2025 10:30 AM EST Clinical Support [facility] [address] [place], [place] [id number] Frances Whitney RN [address] [place] [address] Essential hypertension Social History Tobacco Use Types Packs/Day Years Used Date Smoking Tobacco: Every Day Cigarettes 0.3 61.9 Started: 1961 Passive Smoke Exposure: Current Smokeless Tobacco: Never Tobacco Cessation:Ready to Q uit: Yes; Counseling Given: Yes Comments:Tried to quit before, has patches and lozenges. Goal to quit 06/05/2024 Alcohol Use Standard Drinks/Week Comments Yes 15 (1 standard drink = 0.6 oz pu re alcohol) Alcohol Answer Date Recorded Q1: How often do you have a drink containing alc ohol? 5 05/29/2024 Q2: How many drinks containi ng alcohol do you have on a typical day when you are drinking? 4 05/29/2024 Q3: How often do you have six or more drinks on one occasion? 3 05/29/2024 Depression Answer Date Recorded Patient Health Questionnaire-9 Score 3 05/29/2024 Patient Health Questionnaire-9 Score 3 05/29/2024 Last PHQ-9: Questionnaire Data Not on file 0 05/29/2024 Housing Stability Answer Date Recorded What is your housing situati on today? I have housing today, but I am worried about losing housing in the future 05/29/[address] you li ve. Do you have problems with any of the following? Inadequate heat 05/29/2024 Food Insecurity Answer Date Recorded Within the past 12 months, y ou worried that your food would run out before you got money to buy more: Never True 06/25/2023 Within the past 12 months,th e food you bought just didn't last and you didn't have enough money to get more: Never True Transportation Answer Date Recorded In the past 12 months, has l ack of transportation kept you from medical appts, meetings, work or from getting things needed for daily living? Yes, it has kept me from medical appointments or getting medications. 05/29/2024 Utilities Answer Date Recorded In the past 12 months, has t he electric, gas, oil or water company threatened to shut off services in your home? Yes 05/29/2024 Depression Answer Date Recorded Patient Health Questionnaire-2 Score 0 05/29/2024 Internet Access Answer Date Recorded Internet Access Q1 Yes 05/29/2024 Internet Access Q2 Not on file 05/29/2024 Sex and Gender Information Value Date Recorded Sex Assigned at Male 02/02/2022 10:21 AM EDT Legal Sex Male 10:21 AM EDT Gender Identity Male 02/02/2022 10:21 AM EDT Sexual Orientation Straight 02/02/2022 10 :21 AM EDT documented as of this encounter Last Filed Vital Signs Vital Sign Reading Time Taken Comments Blood Pressure 172/68 02/07/2025 11:09 AM EST Pulse 92 02/07/2025 11:07 AM EST Temperature - - Respiratory Rate 20 02/07/2025 11:07 AM EST Oxygen Saturation 96% 02/07/2025 11:07 AM EST Room air Inhaled Oxygen Concentration - - Weight 77.8 kg (171 lb 9.6 oz) 02/07/2025 11:07 AM EST Height - - Body Mass Index 25.34 01/31/2025 9:41 AM EDT documented in this encounter Progress Notes * Frances Whitney RN - 02/07/2025 10:30 AM EST S: Pt here with his for nurse visit for BP Check. Pt reports that his blood pressure was elevated this morning. States he took BP meds immediately prior to this appointment. Pt reports that he eats a varied diet. Reports that his cooks at home and he has been eating more fruits and vegetables. Pt reports he is working on quitting smoking. Reports that he had been smoking 20 cigarettes per day and is now smoking 8 per day. Reports that he has nicotine patches and gum. Pt states that hedrinks 3 beers twice a week. Pt denies headache, chest pain, sob, dizziness and visual changes today. Pt reports the following home BP readings: 136/90; 134/84; 135/76; 126/78; 136/80 and 158/88 thismorning. O: Pt currently prescribed carvedilol 3.125 mg po BID with food and Losartan potassium 50 mg po daily. Pt states he is taking medications as prescribed. A: BP today elevated 176/78 left arm, sitting; 172/68 right arm, sitting; P 92; R 20; O2 96% on room air; Wt: 171.6 lb. P: Consulted with pcp who discontinues Losartan 50 mg and prescribed Losartan/hydrochlorothiazide 100/12.5 mg daily. Requests that pt check blood work on Wednesday or Wednesday. Advised pt of plan. Pt advised to take medications as rx. Pt encouraged to adhere to low sodium diet. Pt encouraged to increase amount and frequency of exercise. Pt reports agreement with plan and agrees to nurse visit for blood pressure check 02/21/25. documented in this encounter Plan of Treatment Upcoming Encounters Date Type Department Care Team (Late st Contact Info) Description 02/16/2025 10:00 AM EST Telemedicine [facility] [address] [place] [id number] Eunice Pruitt RN 2025 11:00 AM EST Clinical Support [facility] [address] [place] [id number] documented as of this encounter Goals Goal Patient Goal Type Associated Problems Recent Progress Patient-Stated? Author Record your blood pressure once per day Blood Pressure No Joanne Cage PharmD Blood Pressure < 140/90 Blood Pressure 172/68(2024 11:09 AM EST) No Joanne Cage PharmD Smoking cessation General No Joanne Cage PharmD documented as of this encounter Visit Diagnoses Diagnosis Essential hypertension Unspecified essential hypertension documented in this encounter Additional Health Concerns Assessment Noted Time PHQ-9 Depression Total Score: 3 05/29/19 25 2:35 PM EST documented as of this encounter Care Teams Flower Grower Relationship Specialty Start Date End Date Name, MD Luigi [address] [place] [address] PCP - General Family Medicine 03/06/19 documented as of this encounter
--- OUTSIDE RECORDS SUMMARY | 2025-02-13 13:08 | XMS_ITS | Encounter Summary ---
Author Organization [employer] Address [address] [facility] 7 [place] [address] Care Team Providers Care Grease Press Helper Name Role Phone Name, Luigi TIJERINA Primary Care Provider [phone] Joanne Cage PharmD Unavailable [phone] Reason for Visit * Reason Onset Date Comments Med Refill 06/01/2023 Encounter Details Date Type Department Care Team ([facility] st Contact Info) Description 06/01/2023 Telephone [facility] [address] [place] [address] Name, MD Luigi [address] [place] [address] Med Refill Social History Tobacco Use Types Packs/Day Years Used Date Smoking Tobacco: Every Day Cigarettes Passive Smoke Exposure: Current Smokeless Tobacco: Never Alcohol Use Standard Drinks/Week Comments Yes 15 (1 standard drink = 0.6 oz pu re alcohol) PHQ-2 Answer Date Recorded Patient Health Questionnaire-2 Score 0 04/17/2022 Housing Stability Answer Date Recorded What is your housing situation today? I have mayela rodriguez 02/04/[address] you li ve. Do you have problems with any of the following? None of the above 02/04/2023 Food Insecurity Answer Date Recorded Within the past 12 months, y ou worried that your food would run out before you got money to buy more: Never True 02/04/2023 Within the past 12 months,th e food you bought just didn't last and you didn't have enough money to get more: Never True 05/2022 Transportation Answer Date Recorded In the past 12 months, has l ack of transportation kept you from medical appts, meetings, work or from getting things needed for daily living? No 02/04/2023 Utilities Answer Date Recorded In the past 12 months, has t he electric, gas, oil or water company threatened to shut off services in your home? No 02/04/2023 Depression Answer Date Recorded Patient Health Questionnaire-2 Score 0 04/17/2022 Sex and Gender Information Value Date Recorded Sex Assigned at Male 02/02/2022 10:21 AM EDT Legal Sex Male 10:21 AM EDT Gender Identity Male 02/02/2022 10:21 AM EDT Sexual Orientation Straight 02/02/2022 10 :21 AM EDT documented as of this encounter Miscellaneous Notes * Telephone Encounter - Ken Flores - 06/01/2023 8:15 AM EST TC from pt requesting medication refill. Medications needing refill : oxyCODONE-acetaminophen (Percocet) 5-325 MG tablet To be sent to: [facility] - [place], [place] - [address] [place] [address] documented in this encounter Plan of Treatment Upcoming Encounters Date Type Department Care Team (Late st Contact Info) Description 02/16/2025 10:00 AM EST Telemedicine [address] [id number] Eunice Pruitt RN 2025 11:00 AM EST Clinical Support [address] [address] documented as of this encounter Goals Goal Patient Goal Type Associated Problems Recent Progress Patient-Stated? Author Record your blood pressure once per day Blood Pressure No Puia, Joanne, PharmD Blood Pressure < 140/90 Blood Pressure 172/68(2024 11:09 AM EST) No Puia, Joanne, PharmD Smoking cessation General No Puia, Joanne, PharmD documented as of this encounter Visit Diagnoses Not on filedocumented in this encounter Care Teams Grease Press Helper Relationship Specialty Start Date End Date Name, MD Luigi [address] [place] [id number] PCP - General Family Medicine 03/06/19 Joanne Cage, Roseanne [address] [place] [address] Pharmacist Internal Medicine 01/13/23 10/05/23 documented as of this encounter
--- OUTSIDE RECORDS SUMMARY | 2025-02-13 13:08 | XMS_ITS | Encounter Summary ---
Author Organization [employer] Address [address] [place] [address] 7 [place] [address] Care Team Providers Care Knot Cutter Name Role Phone Name, Luigi TIJERINA Primary Care Provider [phone] Joanne Cage PharmD Unavailable [phone] Reason for Visit * Reason Comments Med Refill Encounter Details Date Type Department Care Team ([facility] st Contact Info) Description 07/21/[address] [facility] [address] [place], [place] [phone] Name, MD Luigi [address] [place] [address] Chronic low back pain, unspecified back pain laterality, unspecified whether sciatica present Social History Tobacco Use Types Packs/Day Years Used Date Smoking Tobacco: Every Day Cigarettes Passive Smoke Exposure: Current Smokeless Tobacco: Never Alcohol Use Standard Drinks/Week Comments Yes 15 (1 standard drink = 0.6 oz pu re alcohol) Depression Answer Date Recorded Patient Health Questionnaire-9 Score 0 06/25/2023 Patient Health Questionnaire-9 Score 0 06/25/2023 Last PHQ-9: Questionnaire Data Not on file 0 06/25/2023 Housing Stability Answer Date Recorded What is your housing situation today? I have mayela sing 06/25/[address] you li ve. Do you have problems with any of the following? None of the above 06/25/2023 Food Insecurity Answer Date Recorded Within the [...] getting things needed for daily living? No 06/25/2023 Utilities Answer Date Recorded In the past 12 months, has t he electric, gas, oil or water company threatened to shut off services in your home? No 06/25/2023 Depression Answer Date Recorded Patient Health Questionnaire-2 Score 0 06/25/2023 Sex and Gender Information Value Date Recorded Sex Assigned at Male 02/02/2022 10:21 AM EDT Legal Sex Male 10:21 AM EDT Gender Identity Male 02/02/2022 10:21 AM EDT Sexual Orientation Straight 02/02/2022 10 :21 AM EDT documented as of this encounter Plan of Treatment Upcoming Encounters Date Type Department Care Team (Late st Contact Info) Description 02/16/2025 10:[address] [facility] [address] [place] [id number] Eunice Pruitt RN 2025 11:00 AM EST Clinical Support [address] [address] documented as of this encounter Goals Goal Patient Goal Type Associated Problems Recent Progress Patient-Stated? Author Record your blood pressure once per day Blood Pressure No Puia, Joanne, PharmD Blood Pressure < 140/90 Blood Pressure 172/68(2024 11:09 AM EST) No Puia, Joanne, PharmD Smoking cessation General No Puia, Joanne, PharmD documented as of this encounter Visit Diagnoses Diagnosis Chronic low back pain, unspecified back pain laterality, unspecified whether sciatica present documented in this encounter Additional Health Concerns Assessment Noted Time PHQ-9 Depression Total Score: 0 06/25/19 24 10:06 AM EDT documented as of this encounter Care Teams Knot Cutter Relationship Specialty Start Date End Date Name, MD Luigi [address] [place] [address] PCP - General Family Medicine 03/06/19 Pustacey, Joanne, PharmD [address] [place] [address] Pharmacist Internal Medicine 01/13/23 10/05/23 documented as of this encounter
--- OUTSIDE RECORDS SUMMARY | 2025-02-13 13:09 | XMS_ITS | Encounter Summary ---
Author Organization [email or web address] Address [address] [place] [address] 7t h Floor [place] [id number] Care Team Providers Care Patent Engineer Name Role Phone Name, Luigi TIJERINA Primary Care Provider [phone] Joanne Cage PharmD Unavailable [phone] Encounter Details Date Type Department Care Team (Late Contact Info) Description 11/10/2022 Orders Only [facility] [address] [place] [address] Name, MD Luigi [address] [place] [address] Other hyperlipidemia (Primary Dx); Essential hypertension; Tubular adenoma of colon; Tobacco dependence syndrome Social History Tobacco Use Types Packs/Day Years Used Date Smoking Tobacco: Every Day Cigarettes Smokeless Tobacco: Never Alcohol Use Standard Drinks/Week Comments Not Currently 0 (1 standard drink = 0.6 oz pur e alcohol) PHQ-2 Answer Date Recorded Patient Health Questionnaire-2 Score 0 04/17/2022 Depression Answer Date Recorded Patient Health Questionnaire-2 [...] Info) Description 02/16/2025 10:00 AM EST Telemedicine [facility] [address] [place] [address] Eunice Pruitt RN 2025 11:00 AM EST Clinical Support [facility] [address] [place] [address] documented as of this encounter Visit Diagnoses Diagnosis Other hyperlipidemia- Primary Essential hypertension Unspecified essential hypertension Tubular adenoma of colon Benign neoplasm of colon Tobacco dependence syndrome Tobacco use disorder documented in this encounter Care Teams Patent Engineer Relationship Specialty Start Date End Date Name, MD Luigi [address] [place] [address] PCP - General Family Medicine 03/06/19 Joanne Cage PharmD [address] [place] [address] Pharmacist Internal Medicine 01/13/23 10/05/23 documented as of this encounter
--- OUTSIDE RECORDS SUMMARY | 2025-02-13 13:09 | XMS_ITS | Encounter Summary ---
Author Organization [employer] Address [address] [facility] 7 [place] [address] Care Team Providers Care Sanitation Associate Name Role Phone Name, Luigi TIJERINA Primary Care Provider [phone] Joanne Cage PharmD Unavailable [phone] Reason for Visit * Reason Onset Date Comments Appointment Request 03/03/2023 Encounter Details Date Type Department Care Team ([facility] Contact Info) Description 03/03/2023 Telephone [facility] [address] [place] [address] Name, MD Luigi [address] [place] [address] Appointment Request Social History Tobacco Use Types Packs/Day Years [...] encounter Miscellaneous Notes * Telephone Encounter - Carly Young - 03/03/2023 12:43 PM EST Tc from pt spouse requesting an appointment to discuss with PCP on possible surgery for abscess. Please contact spouse at [phone] documented in this encounter Plan of Treatment Upcoming Encounters Date Type Department Care Team (Late st Contact Info) Description 02/16/2025 10:00 AM EST Telemedicine [address] [address] Eunice Pruitt RN 2025 11:00 AM EST Clinical Support [address] [address] documented as of this encounter Goals Goal [...] on filedocumented in this encounter Care Teams Sanitation Associate Relationship Specialty Start Date End Date Name, MD Luigi [address] [place] [address] PCP - General Family Medicine 03/06/19 Puia, Joanne, PharmD [address] [place] [address] Pharmacist Internal Medicine 01/13/23 10/05/23 documented as of this encounter
--- OUTSIDE RECORDS SUMMARY | 2025-02-13 13:09 | XMS_ITS | Encounter Summary ---
Author Organization [email or web address] Address [address] [facility] 7t [place] [address] Care Team Providers Care Corporate Bond Trader Name Role Phone Name, Luigi TIJERINA Primary Care Provider [phone] Reason for Visit * Reason Comments Med Refill Encounter Details Date Type Department Care Team ([facility] st Contact Info) Description 11/02/2024 Refill [facility] [address] [place] [address] Name, MD Luigi [address] [place] [address] Chronic low back pain, unspecified back pain laterality, unspecified whether sciatica present Social History Tobacco Use Types Packs/Day Years Used Date Smoking Tobacco: Every Day Cigarettes 0.3 61.9 Started: 1961 Passive Smoke Exposure: Current Smokeless Tobacco: Never Comments:Tried to quit befor e, has patches and lozenges. Goal to quit [...] Info) Description 02/16/2025 10:00 AM EST Telemedicine [facility] [address] [place] [address] Eunice Pruitt, JOSLYN 2025 11:00 AM EST Clinical Support [facility] [address] [place] [address] documented as of this encounter Goals Goal [...] documented as of this encounter Care Teams Corporate Bond Trader Relationship Specialty Start Date End Date Name, MD Luigi [address] [place] [address] PCP - General Family Medicine 03/06/19 documented as of this encounter
--- OUTSIDE RECORDS SUMMARY | 2025-02-13 13:09 | XMS_ITS | Clinical Summary ---
Author Organization [employer] Address [address] [place] [address] 7t [place] [address] Care Team Providers Care Chiropractic Physician Name Role Phone Name, Luigi TIJERINA Primary Care Provider [phone] Allergies No known active allergies Medications omeprazole OTC (PriLOSEC OTC) 20 MG EC tablet Take 1 tablet by mouth Once per day. 01/17/20 22 Active finasteride (Proscar) 5 MG tablet Take 5 mg by mouth Once per day. 02/03/20 22 Active nicotine polacrilex (Nicotine Mini) 4 MG lozengeIndicat ions:Smoking Dissolve 1 lozenge as directed every 1 to 2 hours as needed for cravings (max 20 /d) 100 lozenge 5 01/14/20 23 Active carvedilol (Coreg) 3.125 MG tablet TAKE 1 TABLET BY MOUTH TWICE DAILY WITH BREAKFAST AND DINNER 60 tablet 2 12/20/19 24 Active carbamide peroxide (Debrox) 6.5 % otic solutionIndica tions:Impacted cerumen of both ears Administer 5 drops into each ear 2 times daily. 2 times every day into affected ear 15 mL 02/18/20 24 Active meloxicam (Mobic) 7.5 MG tabletIndicati ons:Chronic low back pain, unspecified back pain laterality, unspecified whether sciatica present TAKE 1 TABLET BY MOUTH EVERY MORNING 90 tablet 3 06/14/19 25 Active Aspirin Low Dose 81 MG EC tablet TAKE 1 TABLET BY MOUTH EVERY DAY 90 tablet 3 10/13/19 25 Active fluticasone (Flonase) 50 MCG/ACT nasal spray INSTILL 2 SPRAYS IN EACH NOSTRIL ONCE DAILY IN THE MORNING 16 g 2 11/22/19 25 Active cyclobenzaprin e (Flexeril) 5 MG tabletIndicati ons:Chronic low back pain, unspecified back pain laterality, unspecified whether sciatica present TAKE 1 TABLET BY MOUTH EVERY TWELVE HOURS 60 tablet 2 11/23/19 25 Active pantoprazole (ProtoNix) 20 MG EC tablet TAKE 1 TABLET BY MOUTH EVERY DAY 90 tablet 1 01/03/20 25 Active oxyCODONE-acet aminophen (Percocet) 5-325 MG tabletIndicati ons:Chronic back pain, unspecified back location, unspecified back pain laterality Take 1 tablet by mouth every 6 (six) hours if needed for severe pain for up to 28 days. 112 tablet 01/13/20 25 Active cilostazol (Pletal) 100 MG tablet TAKE 1 TABLET BY MOUTH TWICE DAILY (30 MINUTES BEFORE OR 2 HOURS AFTER BREAKFAST AND dinner) 60 tablet 11 01/17/20 25 Active nicotine (Nicoderm, Step 1) 21 MG/24HR patch Place 1 patch on the skin 1 (one) time each day at the same time. 42 patch 11 02/01/20 25 Active gabapentin (Neurontin) 300 MG capsule Take 1 capsule (300 mg) by mouth 3 times daily. 90 capsule 11 02/01/20 25 026 Active atorvastatin (Lipitor) 80 MG tabletIndicati ons:Hyperchole sterolemia TAKE 1 TABLET BY MOUTH EVERY DAY 90 tablet 1 02/06/20 25 Active losartan-hydro CHLOROthiazide (Hyzaar) 100-12.5 MG tablet Take 1 tablet by mouth Once per day. 30 tablet 11 02/08/20 25 026 Active nicotine (Nicoderm, Step 1) 21 MG/24HR patchIndicatio ns:Smoking Place 1 patch on the skin 1 (one) time each day at the same time. 42 patch 01/14/20 23 025 Discontinued(Re order (will not trigger notification to Pharmacy)) cilostazol (Pletal) 100 MG tablet TAKE 1 TABLET BY MOUTH TWICE DAILY (30 MINUTES BEFORE OR 2 HOURS AFTER BREAKFAST AND dinner) 60 tablet 11 01/03/20 24 025 Discontinued losartan (Cozaar) 25 MG tablet TAKE 1 TABLET BY MOUTH EVERY DAY 90 tablet 2 05/01/19 25 025 Discontinued(Do se adjustment) atorvastatin (Lipitor) 80 MG tabletIndicati ons:Hyperchole sterolemia TAKE 1 TABLET BY MOUTH EVERY DAY 90 tablet 1 07/26/19 25 025 Discontinued gabapentin (Neurontin) 100 MG capsuleIndicat ions:Chronic low back pain, unspecified back pain laterality, unspecified whether sciatica present TAKE 1 CAPSULE BY MOUTH EVERY DAY 30 capsule 3 11/08/19 25 025 Discontinued losartan (Cozaar) 50 MG tablet Take 1 tablet (50 mg) by mouth Once per day. 30 tablet 11 02/01/20 25 025 Discontinued(In effective) Active Problems Problem Noted Date Diagnosed Date Long-term current use of opiate analgesic 2024 Low back pain 08/21/2024 Smoker 01/12/2024 HTN (hypertension) 01/12/2024 PVC's (premature ventricular contractions) 01/10 Essential hypertension 06/25/2023 Subareolar breast abscess 06/24/2023 Nicotine dependence, cigarettes, uncomplicated 0 06/24/2023 Benign prostatic hyperplasia with urinary obstru ction 12/02/2022 COPD (chronic obstructive pulmonary disease) Colon cancer screening 12/02/2022 GERD (gastroesophageal reflux disease) Hepatitis C 12/02/2022 Intermittent claudication 12/02/2022 Overview (12/02/2022): LE Lumbar degenerative disc disease 12/02/2022 Personal history of nicotine dependence 12/03/19 23 Hepatitis C antibody test positive 08/07/2022 Overview (08/07/2022): Viral load negative 12/2020 Tubular adenoma of colon 08/07/2022 Calcification of coronary artery 03/11/2022 Elevated PSA 03/11/2022 Hypercholesterolemia 09/16/2021 Peripheral vascular disease 12/30/2015 HLD (hyperlipidemia) 12/30/2015 Tobacco dependence syndrome 12/30/2015 Impaired fasting glucose 04/05/1959 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 Resolved Problems Problem Noted Date Diagnosed Date Resolved Date Impacted cerumen 03/11/2022 08/07/2022 Polyneuropathy 12/30/2015 08/07/2022 Encounters Date Type Department Care Team Description 02/07/2025 10:30 AM EST Clinical Support [facility] [address] [place] [address] Frances Whitney, JOSLYN Essential hypertension 02/07/2025 Orders Only [facility] [place] [address] Luigi Cruz MD 02/07/2025 Travel 02/04/2025 Refill [facility] [address] [place] [address] Luigi Cruz MD Hypercholesterolemia 01/31/2025 9:45 AM EDT Office Visit [facility] [address] [place], [place] [address], [place] [phone] Luigi Cruz MD Hypertension, unspecified type (Primary Dx); Tobacco dependence syndrome; Ganglion cyst; Encounter for immunization; Encounter for vaccination 01/31/2025 Travel 01/16/2025 Refill [facility] [address] [place] [address] Luigi Cruz MD 01/11/2025 Refill [facility] [address] [place] [address] Luigi Cruz MD Chronic back pain, unspecified back location, unspecified back pain laterality 01/01/2025 Refill [facility] [address] [place] [address] Luigi Cruz MD 12/14/2024 Refill [facility] [address] [place] [address] Luigi Cruz MD Chronic back pain, unspecified back location, unspecified back pain laterality 12/01/2024 10:30 AM EDT Telemedicine [facility] [address] [place] [address] Eunice Pruitt RN Long-term current use of opiate analgesic 12/01/2024 Travel 11/22/2024 Refill [facility] [address] [place] [address] Luigi Cruz MD Chronic low back pain, unspecified back pain laterality, unspecified whether sciatica present 11/20/2024 Refill [facility] [address] [place] [address] Luigi Cruz MD 11/13/2024 Refill [facility] [address] [place] [address] Name, MD Luigi Chronic back pain, unspecified back location, unspecified back pain laterality from Last 3 Months Immunizations Immunization Administration Dates Next Due Hep B, adult 05/29/2024 Influenza High-dose Quadriva lent Preservative Free 01/13/2023,12/30/2020 Influenza injectable quadriv alent IIV4 with preservative 01/12/2019,02/23/2017,12/30/2015,2014 Influenza injectable quadriv alent preservative free 03/17/2022 Influenza, High Dose Seasona l, Preservative Free 01/31/2025,01/11/2024 Influenza, IIV3, injectable 01/29/2014, 1 Influenza, Split (incl. alice fied surface antigen) 02/02/2013,05/04/2012 Moderna Covid-19 Vaccine 12+ 09/16/2021, 03/04/2021,07/24/2020,2020 Pfizer Covid-19 Vaccine 12+ 01/31/2025,,03/18/2023 Pfizer Covid-19 Vaccine 12+ Bivalent 03/17/2022 Pneumococcal Conjugate PCV 13 07/21/2018 Pneumococcal Conjugate PCV 20 11/13/2022 Tdap 11/13/2022,12/01/2010 Zoster, Recombinant 01/13/2023,11/13/2022 Zoster, live 01/27/2016 Family History Medical History Relation Name Comments Colon cancer Father Dylon Curiel Heart disease Father Dylon Curiel Stomach cancer Father Dylon Curiel Diabetes Mother Samiar Heart failure Mother Samira Hypertension Mother Samira Ovarian cancer Mother Samira Uterine cancer Mother Samira Heart failure Sibling 1 Mariam Migraines Sibling 2 Fernando Obesity Sibling 2 Fernando Obesity Sibling 4 John hip Sibling 4 John Hip replacement knee Sibling 4 John Knee replacemen t leg Sibling 4 John drowning Sibling 5 Stef Skin cancer Sister Roseline Relation Name Status Comments Father Dylon Curiel Mother Samira Sibling 1 Mariam Alive Sibling 2 Fernando Alive Sibling 3 Abhijit Alive Sibling 4 John Alive Sibling 5 Stef Sister Roseline Alive Social History Tobacco Use Types Packs/Day Years [...] Orientation Straight 02/02/2022 10 :21 AM EDT Last Filed Vital Signs Vital Sign Reading Time Taken Comments Blood Pressure 172/68 02/07/2025 11:09 AM EST Pulse 92 02/07/2025 11:07 AM EST Temperature 36.1 C (97 F) 01/31/2025 9:41 AM EDT Respiratory Rate 20 02/07/2025 11:07 AM EST Oxygen Saturation 96% 02/07/2025 11:07 AM EST Room air Inhaled Oxygen Concentration - - Weight 77.8 kg (171 lb 9.6 oz) 02/07/2025 11:07 AM EST Height 175.3 cm (5' 9 ) 01/31/2025 9:41 AM EDT Body Mass Index 25.34 01/31/2025 9:41 AM EDT Plan of Treatment Upcoming Encounters Date Type Department Care Team (Late st Contact Info) Description 02/16/2025 10:00 AM EST Telemedicine [facility] [address] [place] [address] Eunice Pruitt RN 2025 11:00 AM EST Clinical Support [facility] [address] [place] [address] Health Maintenance Due Date Last Done Comments CT Colonography 1952 FIT DNA/Cologuard 1952 FIT 1950 FOBT 1950 Sigmoidoscopy 1950 Hepatitis A Vaccines (1 of 2 - Risk 2-dose series) 02/20/1971 RSV Patients and Patients Aged 60 years or older (1 - Risk 60-74 years 1-dose series) 2012 Hepatitis B Vaccines (2 of 3 - Risk 3-dose series) 06/26/2024 05/29/2024 Alcohol/Substance Use Screening 05/29/2025 05/29/2024 Depression Screening 05/29/2025 05/29/2024, 05/29/19 25 SDOH Screening 05/29/2025 05/29/2024 Colonoscopy 07/28/2025 07/28/2022 Colorectal Cancer Screening 07/28/2025 Tobacco Screening 02/07/2026 02/07/2025 Lipid Panel 08/25/2029 08/25/2024, 02/03, 11/10/2022, Additional history exists DTaP/Tdap/Td Vaccines (3 - Td or Tdap) 11/13/2032 11/13/2022, 12/01/2010 Pneumococcal Vaccine: 50+ Years Completed 11/13/2022, 07/21/2018 Zoster Vaccines Completed 01/13/2023, 11/03, 01/27/2016 COVID-19 Vaccine Completed 01/31/2025, 11/2023, 03/18/2023, Additional history exists Influenza Vaccine Completed 01/31/2025, , 01/13/2023, Additional history exists HIB Vaccines Aged Out No longer eligi ble based on patient's age to complete this topic HPV Vaccines Aged Out No longer eligi ble based on patient's age to complete this topic IPV Vaccines Aged Out No longer eligi ble based on patient's age to complete this topic Meningococcal B Vaccine Aged Out No l onger eligible based on patient's age to complete this topic Meningococcal Vaccine Aged Out No antonio raymon eligible based on patient's age to complete this topic RSV under 20 months Aged Out No longe r eligible based on patient's age to complete this topic Rotavirus Vaccines Aged Out No longer eligible based on patient's age to complete this topic Goals Goal Patient Goal Type Associated Problems Recent Progress Patient-Stated? Author Record your blood pressure once per day Blood Pressure No Puia, Joanne, PharmD Blood Pressure < 140/90 Blood Pressure 172/68(2024 11:09 AM EST) No Puia, Joanne, PharmD Smoking cessation General No Puia, Joanne, PharmD Procedures Procedure Name Priority Date/Time Associated Diagnosis Comments LIPID PANEL, STANDARD Routine 08/25/2024 12:10 PM EDT PVC's (premature ventricular contractions) Hypertension, unspecified type Tobacco dependence syndrome Impaired fasting glucose HM COLONOSCOPY Routine 07/28/2022 from Last 3 Months or Most Recently Relevant to Health Maintenance Results * (ABNORMAL) Lipid Panel, Standard (08/25/2024 12:10 PM EDT) Triglycerides 83 <150 mg/dL [facility] Comment:Desirable Triglyceri de: less than 150 mg/dLBorderline High Triglyceride 150-199 mg/dLHigh Triglyceride: 200-499 mg/dLVery High Triglyceride: greater than or equal to 5OO mg/dL Cholesterol 89 <200 mg/dL [facility] Comment:Desirable Cholestero l: less than 200 mg/dLBorderline High Cholesterol: 200-239 mg/dLHigh Cholesterol: greater than 239 mg/dL LDL Cholesterol Calculated 44 <100 mg/dL [facility] Comment:Desirable LDL: less than 100 mg/dLNear Optimal/Above Optimal LDL: 110- 129 mg/dLBorderline High LDL: 130-159 mg/dLHigh LDL: 160-189 mg/dLVery High LDL: greater than or equal to 190 mg/dL HDL Cholesterol 29(L) >40 mg/dL [facility] Comment:Desirable HDL: great er than 40 mg/dL Note: This HDL assay may give artificially low results in patients with liver disease. Blood Venous blood specimen / Unknown 08/25/2024 12:10 PM EDT 08/25/2024 1:24 PM EDT Luigi Cruz MD LAB BLOOD ORDERABLES Final Resul t [facility] [address] [place], [place] [phone] * (ABNORMAL) Colonoscopy (07/28/2022) Colonoscopy Abnormal( A) Normal Comment:repeat in 3-5 yrs Historical Provider HEALTH MAINTENANCE Final Result from Last 3 Months or Most Recently Relevant to Health Maintenance Insurance MEDICARE [facility] STANDARD Care Teams Chiropractic Physician Relationship Specialty Start Date End Date Name, MD Luigi [address] [place] [id number] PCP - General Family Medicine 03/06/19
--- OUTSIDE RECORDS SUMMARY | 2025-02-13 13:09 | XMS_ITS | Encounter Summary ---
Author Organization [employer] Address [address] [place] [address] 7 [place] [address] Care Team Providers Care Forms Designer Name Role Phone Name, Luigi TIJERINA Primary Care Provider [phone] Joanne Cage PharmD Unavailable [phone] Reason for Visit * Reason Comments Med Refill Encounter Details Date Type Department Care Team (Late st Contact Info) Description 12/15/2022 Refill [facility] [address] [place] [address] Name, MD Luigi [address] [place] [address] Chronic back pain, unspecified back location, unspecified back pain laterality Social History Tobacco Use Types Packs/Day Years [...] Info) Description 02/16/2025 10:00 AM EST Telemedicine [facility] [address] [place] [address] [phone] Eunice Pruitt RN 2025 11:00 AM EST Clinical Support [facility] [address] [place] [address] documented as of this encounter Visit Diagnoses Diagnosis Chronic back pain, unspecified back location, unspecified back pain laterality documented in this encounter Care Teams Forms Designer Relationship Specialty Start Date End Date Name, MD Luigi [address] [place] [address] PCP - General Family Medicine 03/06/19 Joanne Cage PharmD [address] [place] [address] Pharmacist Internal Medicine 01/13/23 10/05/23 documented as of this encounter
--- OUTSIDE RECORDS SUMMARY | 2025-02-13 13:09 | XMS_ITS | Patient Health Record ---
Author Organization [facility] Address [address] [place] [id number] Care Team Providers Care Professor Of Legal Studies Name Role Phone Lawrence (DO NOT USE), Carlota Primary Care Provi sonny Unavailable Panfilo Calle Jr Unavailable [phone] Reason For Referral No Information Medications Medication SIG (Take, Route, Frequency, Duration) Notes Start Date End Date Status Meloxicam 15 MG 1 tablet Orally Once a day Active Lisinopril 10 MG 1 1/2 tablet Orally Once a day Active Percocet 5-325 MG 1 tablet as needed O rally every 8 hrs/prn Active Cyclobenzaprine HCl 5 MG 1 tablet as nee ded Orally twice a day Active Immunizations Vaccine Route Administration Date Status Comme nts Flu vaccine no Preserv 3 and > Unknown 02/20/2016 Admin istered Social History Tobacco Use: Social History Observation Description Date Details (start date - stop date) Current Smoker NA - NA Tobacco Use/Smoking Question Answer Notes Patient is a current smoker How often do you smoke cigarettes? every day How many cigarettes a day do you smoke? 11-20 How soon after you wake up do you smoke your fir st cigarette? 6-30 minutes Are you interested in quitting? Not ready to ace t Alcohol Screen Question Answer Notes Did you have a drink contain ing alcohol in the past year? Yes How often did you have a dri nk containing alcohol in the past year? 4 or more times a week (4 points) How many drinks did you have on a typical day when you were drinking in the past year? 1 or 2 drinks (0 point) How often did you have 6 or more drinks on one occasion in the past year? Less than monthly (1 point) Points 5 Interpretation Positive Section Notes: 2 drinks daily, one pack per day. Problems Problem Type SNOMED Code ICD Code Onset Dates Problem Status W/U Status Risk Notes Problem Colon cancer screening (521242034) Colon cancer screening (Z12.11) Active confirmed Problem High risk drug monitoring status (873468904) retirement (current) use of opiate analgesic (Z79.891) Active confirmed Plan Of Treatment No Information Insurance Providers Payer Name Payer Address Payer Phone Subscriber Number Group Number Insured Name Patient Relationship to Insured Coverage Start Date Coverage End Date MEDICARE OF [place] [address] [place] [id number] AINSLEY LOUIE Self - patient is the insured MEDICAID OF [facility] [address] [place] [phone] [id number] AINSLEY LOUIE Self - patient is the insured Medical (General) History Medical History History ICD Code hypertension back pain arthritis Surgical History Surgery Date(Month/Year) hernia repair 2014 back surgery 2014
--- OUTSIDE RECORDS SUMMARY | 2025-02-13 13:09 | XMS_ITS | Encounter Summary ---
Author Organization [employer] Address [address] [place] [address] [address] [place] [address] Care Team Providers Care City Library Director Name Role Phone Name, Luigi TIJERINA Primary Care Provider [phone] Joanne Cage PharmD Unavailable [phone] Encounter Details Date Type Department Care Team (Late st Contact Info) Description 08/04/2022 Abstract [facility] [address] [place] [id number] Name, MD Luigi [address] [place] [phone] Social History Tobacco Use Types Packs/Day Years Used Date Smoking Tobacco: Every Day Cigarettes Smokeless Tobacco: Never PHQ-2 Answer Date Recorded Patient Health Questionnaire-2 Score 0 04/17/2022 Depression Answer Date Recorded Patient Health Questionnaire-2 Score 0 04/17/2022 Sex and Gender Information Value Date Recorded Sex Assigned at Male 02/02/2022 10:21 AM EDT Legal Sex Male 10:21 AM EDT Gender Identity Male 02/02/2022 10:21 AM EDT Sexual Orientation Straight 02/02/2022 10 :21 AM EDT COVID-19 Exposure Response Date Recorded In the last 10 days, have yo u been in contact with someone who was confirmed or suspected to have Coronavirus/COVID-19? No / Unsure 08/07/2022 9:01 AM EDT documented as of this encounter Plan of Treatment Upcoming Encounters Date Type Department Care Team (Late st Contact Info) Description 02/16/2025 10:00 AM EST Telemedicine [facility] [address] [place] [id number] Eunice Pruitt, RN 2025 11:00 AM EST Clinical Support [facility] [address] [place] [address] documented as of this encounter Visit Diagnoses Not on filedocumented in this encounter Care Teams City Library Director Relationship Specialty Start Date End Date Name, MD Luigi [address] [place] [phone] PCP - General Family Medicine 03/06/19 Joanne Cage PharmD [address] [place] [id number] Pharmacist Internal Medicine 01/13/23 10/05/23 documented as of this encounter
[2025-02-13 14:06] LABS: Anion Gap 10 (12-20); Blood Urea Nitrogen 13 mg/dL (9-16); Calcium 9.0 mg/dL (8.4-10.2); Carbon Dioxide 28 mmol/L (22-29); Chloride 104 mmol/L (96-108); Estimated Glomerular Filt Rate > 60; Potassium 4.2 mmol/L (3.3-5.1); Sodium 138 mmol/L (135-145)
[2025-02-13 14:19] LABS: Prostate Specific Antigen 3.22 ng/mL (<0.05-4.0)
== END 2025-02-13 11:00 | disposition home or self-care (01) ==
LOC: HO.HHCL 10:59
PROVIDERS: Urology; PCP Internal Medicine Geriatric Medicine; Visit Provider Internal Medicine Geriatric Medicine
DX: N40.1 Benign prostatic hyperplasia with lower urinary tract symptoms (principal); N13.8 Other obstructive and reflux uropathy; I10 Essential (primary) hypertension; F17.200 Nicotine dependence, unspecified, uncomplicated; Z12.5 Encounter for screening for malignant neoplasm of prostate
CPT/HCPCS: 36415; 80048; 84153